=== PATIENT | male | born 1945 | race Caucasian/White ===

== ENCOUNTER 2016-09-19 05:38 | Day surgery (SDC) | payer MEDICARE, BC ==
[2016-09-18 11:27] LABS: HEMATOCRIT 44.2 % (42.0-54.0); HEMOGLOBIN 14.3 g/dL (13.5-17.5); MCH 31.4 pg (26.0-34.0); MCHC 32.4 g/dL (31.0-37.0); MCV 96.9 fL (80.0-100.0); MEAN PLATELET VOLUME 11.7 fL (7.4-10.4); RBC 4.56 10x6/uL (4.20-6.10); RDW 13.1 % (11.5-14.5); WBC 8.4 10x3/uL (4.8-10.8)
[2016-09-18 11:36] LABS: CALC OSMOLALITY 286 mosm/kg (275-300); CALCIUM 9.4 mg/dL (8.5-10.1); CARBON DIOXIDE 29.4 mmol/L (21.0-32.0); CHLORIDE - SERUM 107 mmol/L (98-107); GLUCOSE 117 mg/dL (74-106); POTASSIUM - SERUM 4.3 mmol/L (3.5-5.1); SODIUM 143 mmol/L (136-145); UREA NITROGEN 15 mg/dL (7-18); eGFR NON AFRICAN AMERICAN 78 mL/min (90-120)
[~2016-09-19] VITALS: Ht 170.2 cm; Wt 102.1 kg
[~2016-09-19 05:38] MED LIST: ALBUTEROL0.63 MG/3 INH; ATROVENT 0.02%2.5 ML UPD; BAYER CHEWABLE81 MG PO; BROVANA15 MCG/2 M INH; CELEXA20 MG PO; CENTRUM COMPLE1 EACH PO; COZAAR100 MG PO; CYCLOBENZAPRINE10 MG PO; FELODIPINE ER10 MG PO; FLOMAX0.4 MG PO; K-TAB10 MEQ PO; LASIX40 MG PO; LOVASTATIN20 MG PO; METAMUCIL PACKE1 PKT PO; METOPROLOL TAR100 M1 PO; MIRALAX527 GM PO; NIASPAN500 MG PO; NORCO 7.5/325 T1 TA1 PO; OMEPRAZOLE40 MG PO; VENTOLIN HFA18 GM INH; VITAMIN B-122500 MCG PO
[2016-09-19] MEDS ORDERED: NORVASC10 MG PO (08:19)
[2016-09-19] MEDS ORDERED: ZANTAC150 MG PO (08:20)
[2016-09-19 08:22] VITALS: BP 129/58; Ht 170.2 cm; Wt 102.1 kg
[2016-09-19] MEDS ORDERED: HYDROCODONE-APA1 TAB PO (10:29)
--- NOTE | 2016-09-19 14:52 | NUR ---
1200 IV DC WITH CATHER TIP INTACT
--- NOTE | 2016-09-30 10:28 | OP ---
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 PROCEDURE PERFORMED: Right shoulder arthroscopic subacromial decompression, distal clavicle excision and open rotator cuff repair. SURGEON: Diallo Burgess MD ANESTHESIA: General with an interscalene block for postop pain. CONDITION: He tolerated the procedure well, was transferred to the recovery room in stable condition at termination of the procedure. INDICATIONS: This is a 71-year-old gentleman with significant pain in his shoulder and weakness. He has had an MRI showing a tear. He also looked like he had a biceps rupture. He also had an AC joint DJD and impingement. We discussed options. He elected to proceed with operative repair. OPERATIVE REPORT: The patient was taken to the operating room, placed in the supine position. General anesthesia was obtained. He did have an interscalene block placed in the preop holding area. After the initial prep and drape, he had his right shoulder confirmed again to be the correct shoulder. Portal sites were marked and injected with 0.25% Marcaine with epinephrine. I established a posterior portal through which I put the scope and the inflow. Under direct visualization, I established an anterior portal. In scoping the glenohumeral joint, there was no significant biceps left, ____ the tendon was ruptured off of the labrum. There was a fairly large anterior superior supraspinatus tear. I did do some minor debridement in the joint, following which, I placed the scope in the subacromial space, made a lateral portal and through the lateral portal, debrided soft tissue and bursa over to the AC joint. I then used the jose to take a very large anterior inferior subacromial spur as well as his distal clavicle which was very degenerative. This was visualized well through the scope. I then made a lateral incision, opened this up. He had a very large anterior superior tear. I placed 4 suture punch sutures into this, brought this over to 2 [place] 4.5 suture anchors. This did bring down the cuff well. I did not go looking for his biceps as it had been ruptured prior to being to the case. I irrigated copiously, then checked the apposition of the cuff until the bone looked very good. I irrigated further, following which, I closed with 2-0 Vicryl, then 3-0 Prolene. The portals were closed with 3-0 Prolene. He was placed in soft dressing slingshot brace, awakened and transferred to the recovery room in stable condition, having tolerated the procedure well. 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
== END 2016-09-19 12:15 | disposition home or self-care (01) ==
LOC: D.OPS 05:38 → D.PAN 09:30 → D.OPS 09:30
PROVIDERS: Anesthesiology
DX: M75.41 Impingement syndrome of right shoulder (principal); M19.011 Primary osteoarthritis, right shoulder; M75.21 Bicipital tendinitis, right shoulder; M75.111 Incomplete rotator cuff tear or rupture of right shoulder, not specified as traumatic

== ENCOUNTER → 2017-02-11 09:34 | Outpatient (CLI) | payer MEDICARE, BC ==
[2016-09-19 08:22] VITALS: BMI 35.3
[~2017-02-11 09:34] MED LIST changes: +HYDROCODONE-APA1 TAB PO; +NORVASC10 MG PO; +ZANTAC150 MG PO
== END | disposition home or self-care (01) ==
LOC: D.RT 09:34
DX: J44.9 Chronic obstructive pulmonary disease, unspecified (principal)

== ENCOUNTER → 2017-02-19 14:02 | Outpatient (CLI) | payer MEDICARE, BC ==
[2016-09-19 08:22] VITALS: BMI 35.3
== END | disposition home or self-care (01) ==
LOC: D.MRI 14:02
DX: M47.14 Other spondylosis with myelopathy, thoracic region (principal)

== ENCOUNTER 2017-03-03 18:31 | Inpatient (IN) | payer MEDICARE, BC ==
[~2017-03-03] VITALS: Ht 170.2 cm; Wt 1038.8 kg
--- NOTE | ~2017-03-03 | HEMODYNAMI ---
PATIENT:JANICE JIMENEZ JR MEDICAL RECORD: [id number] : 47 [id number] ADMISSION DATE: 03/03/17 Generatedon:03/05/201712:31 Patient name: JANICE JIMENEZ Patient #: [id number] SSN: : 1945 Date of study: 03/05/2017 Page: Of Hemodynamic Procedure Report Patient Data Patient Demographics Procedure consent was obtained First Name: JANICE Gender: Male Last Name: TONY Suffix: Jr Guillen Initial: PRIYANKA : 1945 Patient #: [id number] Age: 72 year(s) Race: Unknown Additional ID: [id number] Contact details Address: [address] [place] [address] State: [place] City: [place] Zip code: [address] Past Medical History Allergies Allergen Reaction Date Comments Reported Other allergy 03/04/2017 Bendadryl Other allergy 03/05/2017 Benadryl Admission Admission Data Admission Date: 03/03/2017 Admission Time: 22:41 Room #: D.2120 Lab Results Lab Result Date: 03/05/2017 Lab Result Time: 0:00 Biochemistry Name Units Result Min Max BUN mg/dl 13 --(--*-)-- 7 18 Creatinine mg/dl 1 --(--*-)-- 0.6 1.3 CBC Name Units Result Min Max Hemoglobin g/dl 15.7 --(--*-)-- 13.5 17.5 Procedure Procedure Types Cath Procedure PCI Procedure Coronary Stent Initial Miscellaneous Procedures Moderate Sedation up to 15 minutes Procedure Description Procedure Date Procedure Date: 03/05/2017 Procedure Start Time: 12:22 Procedure End Time: 12:28 Procedure Staff Name Function Ravindra Alvarado MD Performing Physician Blu Whalen RT Scrub Rosa Le RN Nurse Stephanie Moise RT Monitor Claudia Chaevz RT Monitor David Frausto RN Nurse Procedure Data Cath Procedure Fluoroscopy Diagnostic fluoroscopy Total fluoroscopy Time: 1.4 time: 1.4 min min Diagnostic fluoroscopy Total fluoroscopy dose: 356 dose: 356 mGy mGy Contrast Material Contrast Material Type Amount (ml) Isovue 300 38 Entry Location Entry Primary Successful Side Size Upsize Upsize Entry Closure Succes sful Closure Location (Fr) 1 (Fr) 2 (Fr) Remarks Device Remarks Femoral Right 6 Fr Exoseal artery Short Estimated blood loss: 5 ml Procedure Complications No complications Procedure Medications Medication Administration Route Dosage Oxygen NC 2 l/min Heparin Flush Bag added to field 2 bags (1000units/500ml NS) Lidocaine 2% added to field 20 Fentanyl I.V. 50 mcg Versed I.V. 1 mg Heparin Bolus I.V. 4000 units Hemodynamics Rest HGB: 15.7 (g/dl) Heart Rate: 65 (bpm) Snapshots Pre Cath Intra NCS Post Cath Vital Signs Time Heart Resp SPO2 NIBP (mmHg) Rhythm Pain Sedation Rate (ipm) (%) Status Level (bpm) 12:02:44 64 21 95 148/80(130) NSR 0 (11) 10(A) , No pain 12:07:00 64 18 97 148/84(126) NSR 0 (11) 10(A) , No pain 12:11:17 65 19 96 143/81(121) NSR 0 (11) 10(A) , No pain 12:15:30 65 16 96 133/78(112) NSR 0 (11) 10(A) , No pain 12:19:45 66 16 93 136/72(112) NSR 0 (11) 9(A) , No pain 12:24:00 66 17 93 129/70(105) NSR 0 (11) 9(A) , No pain 12:28:15 66 15 96 125/69(102) NSR 0 (11) 9(A) , No pain Medications Time Medication Route Dose Verified Delivered Reason Notes Effectiveness by by 12:00:49 Oxygen NC 2 Rosa Rosa used for l/min Le Le fitter/welder RN 12:00:57 Heparin Flush added 2 Rosa Rosa used for Bag to bags Le Le procedure (1000units/500ml field RN RN NS) 12:01:05 Lidocaine 2% added 20ml Rosa Rosa used for to vial Le Le procedure field RN RN 12:19:47 Fentanyl I.V. 50 Rosa Rosa for sedation mcg Le Le RN RN 12:20:00 Versed I.V. 1 mg Rosa Lee for sedation Rey Le RN RN 12:24:18 Heparin Bolus I.V. 4000 Rosa Lee for units Rey Le anticoagulation RN dusting and brushing machine operator Log Time Note 11:39:30 Informed consent obtained and on chart 11:39:45 Diagnostic Cath Status : Elective 11:40:32 Rosa Le RN sent for patient. Start room use. 11:40:33 Time tracking: Regular hours 11:40:37 Plan of Care:Hemodynamics will remain stable., Cardiac rhythm will remain stable., Comfort level will be maintained., Respiratory function will remain adequate., Patient/ family verbilizes understanding of procedure., Procedure tolerated without complication., Recovers from procedure without complications.. 11:43:07 Lab Result : Hemoglobin 15.7 g/dl 11:43:07 Lab Result : Creatinine 1 mg/dl 11:43:07 Lab Result : BUN 13 mg/dl 11:53:09 Patient received from Med II to [facility] 2 Alert and oriented. Tansferred to table in Supine position. 11:53:10 Warm blankets applied, and camden hugger turned on for patient comfort. 11:53:11 Correct patient and procedure confirmed by team. 11:53:12 ECG and BP/O2 sat monitors applied to patient. 12:00:49 Oxygen 2 l/min NC was administered by Rosa Le RN; used for procedure; 12:00:57 Heparin Flush Bag (1000units/500ml NS) 2 bags added to field was administered by Rosa Le RN; used for procedure; 12:01:05 Lidocaine 2% 20ml vial added to field was administered by Rosa Le RN; used for procedure; 12:01:37 Vital chart was started 12:01:38 Baseline sample Acquired. 12:01:41 Rhythm: sinus rhythm 12:01:43 Full Disclosure recording started 12:01:48 H&P Date Dictated: 03/05/2017 Within 30 days and on chart.. 12:01:49 Pre-procedure instructions explained to patient. 12:01:50 Pre-op teaching completed and patient verbalized understanding. 12:01:55 Family in waiting room. 12:01:57 Patient NPO since Midnight. 12:02:15 Patient allergic to Other allergyBenadryl 12:02:18 Is the patient allergic to Iodine/contrast media? No. 12:02:19 Was the patient premedicated? No 12:02:27 Is patient on blood thinner?Yes 12:02:31 ACC The patient was administered the following blood thiners within the last 24 hours: ACCPlavix 12:02:33 Patient diabetic? No. 12:02:36 Previous problem with sedation/anesthesia? No ? 12:02:37 Snore? Yes 12:02:38 Sleep apnea? Yes 12:02:41 Deviated septum? No 12:02:42 Opens mouth fully? Yes 12:02:43 Sticks out tongue? Yes 12:02:47 Airway obstruction? Yes copd 12:02:51 Dentures? Yes out 12:02:56 Pre procedure: right dorsailis pedis pulse 1+ Palpable, but thready & weak; easily obliterated 12:02:59 Pre procedure: left dorsailis pedis pulse 1+ Palpable, but thready & weak; easily obliterated 12:03:02 Patient pain scale 0/10 ?. 12:03:08 IV patent on arrival in left forearm with 0.9% NaCl at [facility]. 12:03:11 Lab results completed and on chart. 12:03:15 Right groin area was prepped with chlora-prep and draped in sterile fashion 12:03:16 Alarms reviewed by R. N. 12:03:16 Sharps counted by scrub and verified by R.N. 12:14:46 Zero performed for pressure channel P1 12:14:53 Zero performed for pressure channel P1 12:15:01 Zero performed for pressure channel P1 12:15:09 Zero performed for pressure channel P1 12:18:51 Physician arrived 12:18:52 --------ALL STOP TIME OUT------ 12:18:54 Final Timeout: patient, procedure, and site verified with staff and physician. All members of the team are in agreement. 12:19:01 Right groin site verified by team. 12:19:04 Physical assessment completed. ASA score P 2 - A patient with mild systemic disease as per Ravindra Alvarado MD. 12:19:08 Sedation plan: IV Moderate Sedation Versed, Fentanyl 12:19:47 Fentanyl 50 mcg I.V. was administered by Rosa Le RN; for sedation; 12:20:00 Versed 1 mg I.V. was administered by Rosa Le RN; for sedation; : Procedure started. 12::36 Use device set Femoral PCI 12::38 Acist Syringe opened to sterile field. 12::38 Acist Hand Control opened to sterile field. 12::38 Bag Decanter opened to sterile field. 12::39 Medline Cath Pack opened to sterile field. 12::39 Terumo 6Fr Reston Sheath opened to sterile field. 12::39 St Esau 260cm J .035 wire opened to sterile field. 12::40 Merit BasixCompak Inflation Kit opened to sterile field. 12::40 Acist Manifold opened to sterile field. 12::40 Tegaderm 4 x 4 opened to sterile field. 12:22:03 Cordis 6FR XBLAD 4.0 guide catheter opened to sterile field. 12:22:11 Miller Whisper J 300cm 0.014 guide wire opened to sterile field. 12:22:18 Local anesthetic to right femoral artery with Lidocaine 2% by Ravindra Alvarado MD.INITIAL ACCESS ONLY 12:22:27 A 6 Fr Short sheath was inserted into the Right Femoral artery 12::36 6 Fr xblad 4 guide catheter was inserted over the wire 12:23:26 whisper wire advanced. 12:24:18 Heparin Bolus 4000 units I.V. was administered by Rosa Le RN; for anticoagulation; 12:25:03 Wire advanced across lesion. ::47 Inflation Number: 1 A Vanlue OTW 3.0 x 15 stent was prepped and advanced across the Prox LAD. The stent was deployed at 15 [place] for 0:10 (min:sec). 12::40 Stent catheter was removed intact over wire. 12::40 Wire removed. 12::41 Guide catheter removed. 12::49 Sheath removed intact; hemostasis achieved with Exoseal to the Right Femoral artery. 12::18 Procedure ended.(Physican Out) 12::56 Fluoroscopy time 01.40 minutes. 12::59 Flurop Dose total: 356 12::59 Fluoroscopy dose: 356 mGy 12:28:04 Contrast amount:Isovue 300 38ml. 12:28:06 Sharps counted by scrub and verified by R.N. 12:28:07 Insertion/operative site no bleeding no hematoma. 12:28:10 Post-op/insertion site Right Femoral artery dressed using a 4 x 4 and Tegaderm. 12:28:11 Post Procedure Pulses reassessed and unchanged 12:28:13 Post procedure rhythm: unchanged. 12:28:16 Estimated blood loss: 5 ml 12:28:17 Post procedure instruction explained to patient.Patient verbalizes understanding. 12:28:17 Patient needs reinforcement of post procedure teaching. 12:28:23 Procedure type changed to Cath procedure, PCI procedure, Coronary Stent Initial, Miscellaneous Procedures, Moderate Sedation up to 15 minutes 12:28:24 Procedure and supply charges have been captured, reviewed, submitted and are correct. 12:28:27 Procedure Complication : No complications 12:28:29 Vital chart was stopped 12:28:30 See physician's report for complete and final results. 12:28:33 Report given to [facility]. 12:28:35 Patient transfered to [facility] with Stretcher. 12:28:41 Procedure ended. 12:28:41 Full Disclosure recording stopped 12:28:50 ACC-PCI Only Patient was given prescriptions, or instructed by Ravindra Alvarado MD to start/continue the following medications upon discharge: Plavix 12:28:52 End room use (Document Last) Intervention Summary Intervention Notes Time ActionType Lesion and Equipment Action# Pressure Duration Attributes Used 12:25:47 Place stent Prox LAD Alo OTW 1 15 00:10 3.0 x 15 stent Device Usage Item Name Manufacture Quantity Catalog Hospital Part Current Minimal Lot# / Number Charge Number Stock Stock Serial# Code Acist Acist 1 20392 241372 219654 742846 20 Syringe Medical Systems Inc Acist Hand Acist 1 74468 389818 311494 180554 5 Control Medical Systems Inc Bag Microtek 1 2002S 491293 85729 173434 5 DecFancred Medical Inc. Medline Cardinal 1 [id number] 660081 54901 929360 5 Omnilink Systems Terumo 6Fr Terumo 1 [id number] 481828 318997 633039 [address] Esau St Esau 1 731013 170291 621184 150122 30 260cm J .035 wire Merit Merit 1 [id number] 657337 368419 521946 15 BasixCompak Medical Inflation Kit Acist Acist 1 71756 400743 425202 614857 5 CSD [employer] Tegaderm 4 3M 1 1626W 519487 161605 105995 5 x 4 Cordis 6FR Cardinal 1 [id number] 662505 610087 047969 3 XBLAD 4.0 Health guide catheter Miller Miller 1 [id number] 473644 400365 164260 5 Whisper J Vascular 300cm 0.014 guide wire Vanlue OTW Medtronic 1 [id number] 773890 383311 012799 5 [id number] 3.0 x 15 stent Signature Audit [place] Stage Time Signature Unsigned Intra-Procedure 03/05/2017 Claudia Chavez 12:31:52 PM RT(R) Signatures Monitor : Stephanie Moise Signature : RT Date : Time : Monitor : Claudia Chavez RT Signature : Date : Time : [address] [address]
--- NOTE | ~2017-03-03 | HEMODYNAMI ---
PATIENT:JANICE JIMENEZ JR MEDICAL RECORD: [id number] : 47 LOCATION:[address] ADMISSION DATE: 03/03/17 Generatedon:03/04/201713:40 Patient name: JANICE JIMENEZ Patient #: [id number] SSN: : 1945 Date of study: 03/04/2017 Page: Of Hemodynamic Procedure Report Patient Data Patient Demographics Procedure consent was obtained First Name: JANICE Gender: Male Last Name: TONY Suffix: [facility] Initial: PRIYANKA : 1945 Patient #: [id number] Age: 72 year(s) Race: Unknown Additional ID: [id number] Contact details Address: [address] [place] [address] State: [place] City: [place] Zip code: [address] Past Medical History Allergies Allergen Reaction Date Comments Reported Other allergy 03/04/2017 Bendadryl Admission Admission Data Admission Date: 03/03/2017 Admission Time: 22:41 Room #: D.2120 Lab Results Lab Result Date: 03/04/2017 Lab Result Time: 0:00 Biochemistry Name Units Result Min Max BUN mg/dl 13 --(--*-)-- 7 18 Creatinine mg/dl 1 --(--*-)-- 0.6 1.3 CBC Name Units Result Min Max Hemoglobin g/dl 15.7 --(--*-)-- 13.5 17.5 Procedure Procedure Types Cath Procedure Diagnostic Procedure LHC LHC w/Coronaries PCI Procedure Coronary Stent Initial Miscellaneous Procedures Moderate Sedation up to 30 minutes Procedure Description Procedure Date Procedure Date: 03/04/2017 Procedure Start Time: 13:12 Procedure End Time: 13:38 Procedure Staff Name Function Ravindra Alvarado MD Performing Physician Levi Rowe RN Nurse Stephanie Moise RT Scrub Blu Whalen RT Monitor Procedure Data Cath Procedure Fluoroscopy Diagnostic fluoroscopy Total fluoroscopy Time: time: 10.8 min 10.8 min Diagnostic fluoroscopy Total fluoroscopy dose: dose: 2253 mGy 2253 mGy Contrast Material Contrast Material Type Amount (ml) Isovue 300 159 Entry Location Entry Primary Successful Side Size Upsize Upsize Entry Closure Succes sful Closure Location (Fr) 1 (Fr) 2 (Fr) Remarks Device Remarks Femoral Right 5 Fr 6 Fr Exoseal artery Short Estimated blood loss: 10 ml Diagnostic catheters Device Type Used For End Catheter Placement Cordis 5Fr Pigtail Procedure Catheter (MP) Cordis 5Fr JL 4.0 Procedure Catheter (MP) Cordis 5Fr 3DRC Catheter Procedure (MP) Procedure Complications No complications Procedure Medications Medication Administration Route Dosage Oxygen NC 2 l/min Lidocaine 2% added to field 20 Heparin Flush Bag added to field 2 bags (1000units/500ml NS) Versed I.V. 1 mg Fentanyl I.V. 50 mcg Heparin Bolus I.V. 5000 units Versed I.V. 1 mg Fentanyl I.V. 50 mcg Plavix P.O. 75 mg Hemodynamics Rest HGB: 15.7 (g/dl) Heart Rate: 71 (bpm) Snapshots Pre Cath Intra NCS Post Cath Vital Signs Time Heart Resp SPO2 NIBP (mmHg) Rhythm Pain Sedation Rate (ipm) (%) Status Level (bpm) 13:08:55 71 16 95 149/97(127) NSR 0 (11) 10(A) , No pain 13:13:15 71 15 93 127/83(119) NSR 0 (11) 10(A) , No pain 13:17:29 74 16 94 144/85(124) NSR 0 (11) 9(A) , No pain 13:21:47 75 14 94 126/84(109) NSR 0 (11) 9(A) , No pain 13:25:59 81 14 95 133/83(123) NSR 0 (11) 9(A) , No pain 13:30:13 79 15 94 151/90(127) NSR 0 (11) 9(A) , No pain 13:34:31 84 16 94 145/84(113) NSR 0 (11) 9(A) , No pain 13:38:44 77 16 93 144/84(115) NSR 0 (11) 10(A) , No pain Medications Time Medication Route Dose Verified Delivered Reason Notes Effectiveness by by 13:08:57 Oxygen NC 2 Ravindra Sims used for l/min Jenny Rowe RN procedure 13:09:13 Lidocaine 2% added 20ml Ravindra Ravindra used for to vial Jenny Alvarado MD procedure field 13:09:20 Heparin Flush added 2 Ravindra Buffie used for Bag to bags Jenny Rowe RN procedure (1000units/500ml field NS) 13:11:58 Versed I.V. 1 mg Ravindra Juanie for sedation Jenny Rowe RN 13:12:04 Fentanyl I.V. 50 Ravindra Martinezie for sedation mcg Jenyn Rowe RN 13:17:10 Heparin Bolus I.V. 5000 Ravindra Buffie for verifi ed units Jenny Rowe RN anticoagulation with dr alvarado 13:19:39 Versed I.V. 1 mg Ravindra Martinezie for sedation Jenny Rowe RN 13:19:43 Fentanyl I.V. 50 Ravindra Martinezie for sedation mcg Jenny Rowe RN 13:37:32 Plavix P.O. 75 mg Ravindra Sims for Jenny Rowe RN antiplatelet therapy Procedure Log Time Note 12:45:25 Lab Result : BUN 13 mg/dl 12:45:25 Lab Result : Hemoglobin 15.7 g/dl 12:45:25 Lab Result : Creatinine 1 mg/dl 12:46:09 Diagnostic Cath status Elective 12:46:10 Lvei Rowe RN sent for patient. Start room use. 12:46:12 Time tracking: Regular hours 12:46:17 Plan of Care:Hemodynamics will remain stable., Cardiac rhythm will remain stable., Comfort level will be maintained., Respiratory function will remain adequate., Patient/ family verbilizes understanding of procedure., Procedure tolerated without complication., Recovers from procedure without complications.. 12:53:15 Patient received from Pre/Post Procedure Room to CCL 2 Alert and oriented. Tansferred to table in Supine position. 12:53:16 Warm blankets applied, and camden hugger turned on for patient comfort. 12:53:17 Correct patient and procedure confirmed by team. 12:53:18 Signed procedure consent form obtained from patient. 12:53:19 ECG and BP/O2 sat monitors applied to patient. 12:53:33 H&P Date Dictated: 03/04/2017 Within 30 days and on chart.. 12:53:34 Pre-procedure instructions explained to patient. 12:53:34 Pre-op teaching completed and patient verbalized understanding. 12:53:35 Family in patients room. 12:53:36 Patient NPO since Midnight. 13:00:25 Full Disclosure recording started 13:07:47 Vital chart was started 13:08:57 Oxygen 2 l/min NC was administered by Levi Rowe RN; used for procedure; 13:09:13 Lidocaine 2% 20ml vial added to field was administered by Ravindra Alvarado MD; used for procedure; 13:09:20 Heparin Flush Bag (1000units/500ml NS) 2 bags added to field was administered by Levi Rowe RN; used for procedure; 13:09:36 Patient allergic to Other allergyBendadryl 13:09:39 Is the patient allergic to Iodine/contrast media? No. 13:09:41 Is patient on blood thinner?Yes 13:09:42 ACC The patient was administered the following blood thiners within the last 24 hours: ACCPlavix 13:09:45 Patient diabetic? No. 13:09:47 Snore? Yes 13:09:48 Sleep apnea? Yes 13:09:49 Deviated septum? No 13:09:49 Opens mouth fully? Yes 13:09:50 Sticks out tongue? Yes 13:09:54 Airway obstruction? Yes COPD 13:10:41 Pre procedure: right dorsailis pedis pulse 1+ Palpable, but thready & weak; easily obliterated 13:10:44 Patient pain scale 3/10 ?. 13:10:51 IV patent on arrival in left forearm with 0.9% NaCl at O. 13:10:53 Lab results completed and on chart. 13:10:55 Right groin area was prepped with chlora-prep and draped in sterile fashion 13:10:56 Alarms reviewed by R. N. 13:10:57 Sharps counted by scrub and verified by R.N. 13:11:04 Use device set Femoral Dx 13:11:04 Tegaderm 4 x 4 opened to sterile field. 13:11:05 Acist Hand Control opened to sterile field. 13:11:06 Acist Manifold opened to sterile field. 13:11:07 Acist Syringe opened to sterile field. 13:11:07 Bag Decanter opened to sterile field. 13:11:08 Medline Cath Pack opened to sterile field. 13:11:08 Terumo 5Fr Port Tobacco Sheath opened to sterile field. 13:11:09 St Esau 260cm J .035 wire opened to sterile field. 13:11:10 Diagnostic Infinity 5Fr Multipack catheter opened to sterile field. 13:11:15 Physician arrived 13:11:15 --------ALL STOP TIME OUT------ 13:11:15 Final Timeout: patient, procedure, and site verified with staff and physician. All members of the team are in agreement. 13:11:17 Right groin site verified by team. 13:11:20 Physical assessment completed. ASA score P 2 - A patient with mild systemic disease as per Ravindra Alvarado MD. 13:11:22 Sedation plan: IV Moderate Sedation Versed, Fentanyl 13:11:47 Baseline sample Acquired. 13:11:57 Rhythm: sinus rhythm 13:11:58 Versed 1 mg I.V. was administered by Levi Rowe RN; for sedation; 13:12:00 Procedure started. 13:12:01 Local anesthetic to right femoral artery with Lidocaine 2% by Ravindra Alvarado MD.INITIAL ACCESS ONLY 13:12:04 Fentanyl 50 mcg I.V. was administered by Levi Rowe RN; for sedation; 13:12:05 A 5 Fr sheath was inserted into the Right Femoral artery 13:12:24 Zero performed for pressure channel P1 13:12:49 Zero performed for pressure channel P1 13:12:58 Zero performed for pressure channel P1 13:13:04 Zero performed for pressure channel P1 13:13:14 A Cordis 5Fr Pigtail Catheter (MP) was advanced over the wire and used for Procedure. 13:13:17 LV gram done using ZENDEJAS 13:13:20 Injector settings: Ml/sec: 10, Volume: 20, 13:13:24 EF : 40 % 13:13:28 Catheter exchanged over wire. 13:13:32 A Cordis 5Fr JL 4.0 Catheter (MP) was advanced over the wire and used for Procedure. 13:14:57 LCA angiography performed. 13:14:59 Catheter exchanged over wire. 13:15:03 A Cordis 5Fr 3DRC Catheter (MP) was advanced over the wire and used for Procedure. 13:15:34 RCA angiography performed. 13:15:44 Terumo 6Fr Port Tobacco Sheath opened to sterile field. 13:15:45 Miller Whisper J 300cm 0.014 guide wire opened to sterile field. 13:15:45 Serjio StephenComkevk Inflation Kit opened to sterile field. 13:17:06 Catheter removed. 13:17:10 Heparin Bolus 5000 units I.V. was administered by Levi Rowe RN; for anticoagulation; verified with dr alvarado 13:17:17 Medtronic Launcher 6Fr AR 2.0 SH guide catheter opened to sterile field. 13:17:42 Sheath upsized to a 6 Fr Short. 13:17:48 6 Fr AR 2 SH guide catheter was inserted over the wire 13:17:51 WHISPER wire advanced. 13:19:39 Versed 1 mg I.V. was administered by Levi Rowe RN; for sedation; 13:19:43 Fentanyl 50 mcg I.V. was administered by Levi Rowe RN; for sedation; 13:22:31 Ringgold Sci Choice PT Extra Support J 300cm .014 gu opened to sterile field. 13:22:39 Wire removed. 13:22:47 CHOICE PT wire advanced. 13:24:31 Miller Fielder XT J 300cm 0.014 guide wire opened to sterile field. 13:25:49 Wire removed. unable to cross lesion. 13:25:56 Fielder XT wire advanced. 13:26:33 Wire advanced across lesion. 13:26:59 Inflation number: 1 A Ringgold Sci Bollinger 2.0 X 15 balloon was prepped and advanced across the Mid RCA, then inflated to 9 [place] for 0:10 (min:sec). 13:27:10 Inflation number: 2 The Ringgold Sci Bollinger 2.0 X 15 balloon was reinflated across the Mid RCA, to 13 [place] for 0:10 (min:sec). 13:27:27 Inflation number: 3 The Ringgold Sci Bollinger 2.0 X 15 balloon was reinflated across the Mid RCA, to 15 [place] for 0:10 (min:sec). 13:27:50 Wire removed. 13:28:03 choice pt wire advanced. 13:28:05 Wire advanced across lesion. 13:28:54 Balloon removed over the wire. 13:31:10 Inflation Number: 4 A Dawson OTW 2.25 x 12 stent was prepped and advanced across the Mid RCA. The stent was deployed at 9 [place] for 0:10 (min:sec). 13:31:41 Inflation number: 5 The stent balloon was then re-inflated across the Mid RCA to 13 [place] for 0:10 (min:sec). 13:33:11 Stent catheter was removed intact over wire. 13:33:12 Wire removed. 13:33:13 Guide catheter removed. 13:33:19 Cordis 6Fr Exoseal opened to sterile field. 13:33:27 Sheath removed intact; hemostasis achieved with Exoseal to the Right Femoral artery. 13:33:29 Procedure ended.(Physican Out) 13:35:11 Fluoroscopy time 10.80 minutes. 13:35:16 Fluoroscopy dose: 2253 mGy 13:35:16 Flurop Dose total: 2253 13:35:19 Contrast amount:Isovue 300 159ml. 13:35:21 Sharps counted by scrub and verified by R.N. 13:35:24 Insertion/operative site no bleeding no hematoma. 13:35:27 Post-op/insertion site Right Femoral artery dressed using a 4 x 4 and Tegaderm. 13:35:34 Post right femoral artery:stable, soft, clean and dry 13:35:36 Post Procedure Pulses reassessed and unchanged 13:35:38 Post-procedure physical assessment completed. ASA score P 2 - A patient with mild systemic disease as per Ravindra Alvarado MD. 13:35:41 Post procedure rhythm: unchanged. 13:35:43 Estimated blood loss: 10 ml 13:35:45 Post procedure instruction explained to patient.Patient verbalizes understanding. 13:35:45 Patient needs reinforcement of post procedure teaching. 13:37:32 Plavix 75 mg P.O. was administered by Levi Rowe RN; for antiplatelet therapy; 13:38:09 Procedure and supply charges have been captured, reviewed, submitted and are correct. 13:38:13 Procedure Complication : No complications 13:38:14 Vital chart was stopped 13:38:15 See physician's report for complete and final results. 13:38:16 Report given to Pre/Post Procedure Room. 13:38:18 Patient transfered to Pre/Post Procedure Room with Stretcher. 13:38:19 Procedure ended. 13:38:19 Full Disclosure recording stopped 13:38:25 End room use (Document Last) Intervention Summary Intervention Notes Time ActionType Lesion and Equipment Action# Pressure Duration Attributes Used 13:26:59 Inflate Mid RCA Ringgold 1 9 00:10 balloon Sci Bollinger 2.0 X 15 balloon 13:27:10 Reinflate Mid RCA Ringgold 2 13 00:10 balloon Sci Bollinger 2.0 X 15 balloon 13:27:27 Reinflate Mid RCA Ringgold 3 15 00:10 balloon Sci Bollinger 2.0 X 15 balloon 13:31:10 Place stent Mid RCA Dawson OTW 4 9 00:10 2.25 x 12 stent 13:31:41 Reinflate Mid RCA Dawson OTW 5 13 00:10 stent 2.25 x 12 balloon stent Device Usage Item Name Manufacture Quantity Catalog Number Hospital Part Current Mini mal Lot# / Charge Number Stock Stock Serial# Code Tegaderm 4 3M 1 [id number] 006273 5 x 4 Acist Hand Acist 1 78503 103696 016653 700585 5 Viblio Medical Systems OpenRoute Acist Acist 1 56191 854733 664149 940092 5 UpRace Medical Systems OpenRoute Acist Acist 1 63149 078255 222626 547472 20 Syringe Medical Systems OpenRoute Bag Microtek 1 2002S 767232 65371 878354 5 Salesforce [employer] Inc. Medline Cardinal 1 [id number] 490327 48522 977864 5 Cath Pack Health Terumo 5Fr Terumo 1 JDU090 133172 740973 293723 [address] St Esau 1 872258 470788 638609 858302 30 260cm J .035 wire Diagnostic Cardinal 1 [id number] 622870 99521 369883 30 Infinity Health 5Fr Multipack catheter Cordis 5Fr Cardinal 1 [id number] 5 Pigtail Health Catheter (MP) Cordis 5Fr Cardinal 1 643606 5 JL 4.0 Health Catheter (MP) Cordis 5Fr Cardinal 1 351603 5 3DRC Health Catheter (MP) Terumo 6Fr Terumo 1 VEC246 829661 729509 238142 40 Port Tobacco Sheath Music United 1 [id number] 760433 041317 111447 5 Whisper J Vascular 300cm 0.014 guide wire Merit Merit 1 TN4300 968281 336208 809053 15 [employer] Medical Inflation Kit MedOZ SafeRoomstronic 1 [id number] 636717 17276 240112 1 Launcher 6Fr AR 2.0 SH guide catheter Ringgold Sci Ringgold 1 [id number] 332382 510119 135368 5 Choice PT Scientific Extra Support J 300cm .014 gu Miller Miller 1 [id number] 212270 268314 818248 5 Fielder XT Vascular J 300cm 0.014 guide wire Ringgold Sci Ringgold 1 [id number] 061508 038001 246645 1 [id number] [email or web address] 2.0 X 15 balloon Dawson OTW Medtronic 1 [id number] 335066 86490 099923 5 [id number] 2.25 x 12 stent Cordis 6Fr Cardinal 1 EX600 639986 809981 390762 10 [facility] Virgin Play Signature Audit Wiggins Stage Time Signature Unsigned Intra-Procedure 03/04/2017 Blu Whalen 1:40:38 PM RT(R) Signatures Monitor : Blu Whalen RT Signature : Date : Time : [place] [id number] [place] [address]
[2017-03-03 19:41] LABS: BASOPHILS 0.3 % (0-2); EOSINOPHILS 3.8 % (0-7); HEMATOCRIT 46.1 % (42.0-54.0); HEMOGLOBIN 15.7 g/dL (13.5-17.5); IMMATURE GRANULOCYTES 0.3 % (0-5); LYMPHOCYTES 17.7 % (15-50); MCH 32.8 pg (26.0-34.0); MCHC 34.1 g/dL (31.0-37.0); MCV 96.4 fL (80.0-100.0); MEAN PLATELET VOLUME 11.6 fL (7.4-10.4); MONOCYTES 7.7 % (2-11); NEUTROPHILS 70.2 % (40-80); PLATELET COUNT 155 10x3/uL (130-400); RBC 4.78 10x6/uL (4.20-6.10); RDW 12.2 % (11.5-14.5); WBC 10.6 10x3/uL (4.8-10.8)
[2017-03-03 20:13] LABS: ALKALINE PHOSPHATASE 77 U/L (46-116); ALT (SGPT) 25 U/L (10-68); BILIRUBIN - TOTAL 0.39 mg/dL (0.2-1.3); CALC OSMOLALITY 279 mosm/kg (275-300); CALCIUM 9.3 mg/dL (8.5-10.1); CARBON DIOXIDE 28.1 mmol/L (21.0-32.0); CHLORIDE - SERUM 102 mmol/L (98-107); CHOL - HDL RATIO 4.3 ratio (2.3-4.9); CHOLESTEROL, TOTAL 166 mg/dL (0-200); CREATINE KINASE 129 UL (21-232); GLUCOSE 121 mg/dL (74-106); HDL CHOLESTEROL 39 mg/dL (32-96); LDL CHOLESTEROL 81 mg/dL (0-100); LDL-HDL RATIO 2.1 ratio (1.5-3.5); POTASSIUM - SERUM 3.5 mmol/L (3.5-5.1); PRO BNP 502 pg/mL (0-125); SODIUM 140 mmol/L (136-145); TRIGLYCERIDE 234 mg/dL (30-200); UREA NITROGEN 13 mg/dL (7-18); eGFR NON AFRICAN AMERICAN 78 mL/min (90-120)
[2017-03-03 20:18] LABS: PROTEIN - SERUM 7.5 g/dL (6.4-8.2)
[2017-03-03 20:20] LABS: TROPONIN-I 0.328 ng/mL (0.000-0.060)
[2017-03-04] MEDS ORDERED: HYDROCODON-ACE1 EAC7 PO (01:01)
[2017-03-04] MEDS ORDERED: NORVASC5 MG PO (01:03)
[2017-03-04] MEDS ORDERED: MUCINEX DM ER1 EAC1 PO (01:06)
[2017-03-04] MEDS ORDERED: SINGULAIR10 MG PO (01:09)
[2017-03-04] MEDS ORDERED: FLUTICASONE PRO16 GM NASAL (01:09)
[2017-03-04] MEDS ORDERED: BROVANA15 MCG/2 M INH (01:10)
[2017-03-04 01:28] VITALS: BP 180/90; BMI 50.2
[2017-03-04 04:00] VITALS: BP 197/95
--- NOTE | 2017-03-04 07:20 | NUR ---
SPOKE WITH TANNER IN NURSE CASE MANAGEMENT REPORTED PT'S TROPONIN SHE STATED DR YANG HAD BEEN PAGED AND SHE WOULD MAKE HIM AWARE OF TROPONIN
--- NOTE | 2017-03-04 07:30 | NUR ---
ASSESSMENT DONE. DENIES NEEDS.
[2017-03-04 12:00] VITALS: BP 161/82
[2017-03-04 12:08] VITALS: Ht 170.2 cm; Wt 1038.8 kg
--- NOTE | 2017-03-04 13:03 | NUR ---
TO AREA PLANT MANAGER PER BED
--- NOTE | 2017-03-04 14:05 | NUR ---
RETURN FROM DRIER UNLOADER PER BED. RT DARLYN BOBBY C/Maria Teresa. SERG PIRES.
[2017-03-04 16:00] VITALS: BP 180/89
--- NOTE | 2017-03-04 16:12 | NUR ---
ALERT AND ORIENTED X4. RESTING IN BED. FAMILY AT BEDSIDE. FREE FROM BLEEDING. SINUS RHTHYM 71bpm ON TELEMETRY. REFUSE SCDs. CHRISTO ACOSTA RESUME PLAN OF CARE.
--- NOTE | 2017-03-04 17:50 | NUR ---
WITHOUT CHANGES OR DISTRESS NOTED AT THIS TIME. DENIES NEEDS. AT SIDE.
[2017-03-04 20:00] VITALS: BP 143/76
--- NOTE | 2017-03-04 20:47 | NUR ---
RESUMED CARE OF PT, LYING IN BED RESPIRATIONS EVEN AND UNLABORED ON 2LPM VIA NC. AT BEDSIDE, REPORTED NAUSEA AND DIAPHESIS EARLIER. HAS SINCE RESOLVED, VSS. NEURO ASSESSMENT CHECKED PER WIFES REQUEST, SOME LEFT SIDED WEAKNESS NOTED TO LOWER EXTREMITY, NO OTHER DEFECITS AT THIS TIME WILL CONTINUE TO MONITOR. 67 SR ON TELEMETRY. CALL LIGHT IN REACH. SEE NURSE ASSESSMENT.
--- NOTE | 2017-03-04 23:06 | NUR ---
RESPONDED TO EMERGENCY LIGHT, FOUND PT IN FLOOR OF BATHROOM. ASSISSTED TO STANDING POSITION AND ON TO COMMODE. NO COMPLAINTS OF PAIN TO ANY AREAS, SOME REDNESS NOTED TO LEFT FLANK AREA. EDITH NOTIFIED, WILL CONTINUE TO MONITOR. CALL LIGHT IN REACH. BED ALARM TURNED ON.
[2017-03-05] VITALS: BP 130/80
--- NOTE | 2017-03-05 00:19 | NUR ---
CLINICAL PSYCHOLOGY PROFESSOR AT BEDSIDE TO OBTAIN VITALS, CALL LIGHT IN REACH. WILL CONTINUE TO MONITOR.
[2017-03-05 04:00] VITALS: BP 129/58
--- NOTE | 2017-03-05 04:54 | NUR ---
NO CHANGES FROM PREVIOUS ASSESSMENT, CALL LIGHT IN REACH. BED ALARM ON
--- NOTE | 2017-03-05 07:15 | NUR ---
RESTING QUIETLY RESP UNLABORED NAD NOTED
--- NOTE | 2017-03-05 07:17 | NUR ---
DR. YANG PAGED TO NOTIFY OF FALL LAST NIGHT, AWAITING CALL BACK.
--- NOTE | 2017-03-05 07:30 | NUR ---
ASSESSMENT COMPLETED. SMALL BRUISE TO FACE AND ACROSS HIS EAR TO THE LEFT SIDE. 02 AT 2 L/M PER NC. TELEMERTY SHOWS SR. IV TO RIGHT AC SL, PATENT. RIGHT GROIN SOFT WITH DRSG DRY AND INTACT. NPO AFTER BREAKFAST FOR CATH. CALL LIGHT IN REACH WITH SR UP
[2017-03-05 07:47] VITALS: BP 135/73
[2017-03-05 11:42] VITALS: BP 143/75
--- NOTE | 2017-03-05 11:50 | NUR ---
TO PHARMACIST CRITICAL CARE PER BED
--- NOTE | 2017-03-05 17:16 | NUR ---
Patient Name: JANICE JIMENEZ Admission Status: ER Accout number: [id number] Admission Date: 03-05-2017 : 1945 Admission Diagnosis: Attending: RAFAEL BRANDT Current LOS: 1 Anticipated DC Date: 03-06-2017 Planned Disposition: Inpatient Rehab Primary Insurance: MEDICARE A & B PLANNED EXTERNAL PROVIDER: [facility] INPATIENT REHAB Discharge Planning Comments: * Is the patient Alert and Oriented? No 0 * How many steps to enter\exit or inside your home? 5 0 * PCP DR. CASTELLON 0 * Pharmacy [facility] [address] * Preadmission Environment Home with Family 0 * ADLs Independent 0 * Equipment Cane CPAP Oxygen Rolling Walker 0 * Other Equipment NIGHT TIME OXYGEN [facility] - MEDICAL EQUIPMENT PROVIDER PREFERENCE 0 * List name and contact numbers for known caregivers / representatives who currently or will assist patient after discharge: EDITH JIMENEZ, SPOUSE, 0 * Community resources currently utilized None 0 * Please name any agencies selected above. NONE 0 * Additional services required to return to the preadmission environment? Yes * Can the patient safely return to the preadmission environment? Yes 0 * Has this patient been hospitalized within the prior 30 days at any hospital? No [address] YANG WHO PROVIDED ORDERS FOR PHYSICAL THERAPY EVALUATION AND INPATIENT REHAB PRESCREENING DUE TO PT'S SPOUSE REPORTING PT BEING WEAK AND NEEDING REHAB. ADVISES THAT IF NOT ACCEPTED, PT WILL DISCHARGE HOME. CM MET WITH PT AND SPOUSE IN ROOM TO DISCUSS DISCHARGE PLANNING AND NEEDS. PT POST PROCEDURE, SLEEPING THROUGH MOST OF ASSESSMENT. SPOUSE REPORTS PT LIVING AT HOME INDEPENDENTLY WITH SPOUSE BUT HAS BEEN INCREASINGLY WEAK OVER THE PAST FEW WEEKS AND HAS MULTIPLE FALLS AT HOME. PT HAS CANE, ROLLING WALKER (HE DOES NOT USE IT), CPCP AND HOME OXYGEN FROM [facility]. PT HAS OUTSIDE SERVICES ASSISTING IN THE HOME. CM DISCUSSED OBSERVATION STATUS, LACK OF THREE INPATIENT NIGHTS IN THE PAST THIRTY DAYS IN THE HOSPITAL, REQUIREMENT FOR INTERMEDIATE REHAB TO BE PAID AND POSSIBILITY THAT INPATIENT REHAB ADMISSION CRITERIA MAY NOT BE MET. CM ALSO DISCUSSED OUTPATIENT THERAPY SERVICES AND HOME HEALTH REHAB SERVICES. PT'S SPOUSE WANTS PT IN THE [facility] INPATIENT REHAB, SHE USED TO WORK AT [employer] AND KNOWS THE REHAB STAFF AND HERSELF SPENT REHAB TIME IN THE INPATIENT REHAB. GOAL IS FOR PT TO RETURN HOME WITH SPOUSE INDEPENDENTLY FOLLOWING INPATIENT REHAB. CM WAITING COMPLETION OF PHYSICAL THERAPY EVALUATION WELL INPATIENT REHAB PRESCREENING. Trades Helper: Amador Walker
--- NOTE | 2017-03-05 18:12 | NUR ---
LYING QUIETLY. LEFT GROIN SOFT WITH DRSG DRY AND INTACT. PPP. DENIES ANY NEEDS. FAMILY AT BEDSIDE
[2017-03-05 20:53] VITALS: BP 152/79
[2017-03-06 04:00] VITALS: BP 146/74
--- NOTE | 2017-03-06 07:38 | NUR ---
ASSESSMENT DONE. DENIES NEEDS.
[2017-03-06 08:00] VITALS: BP 137/82
--- NOTE | 2017-03-06 10:14 | NUR ---
Rehab Prescreening Consult recieved and the chart has been reviewed. This patient does not meet IRF criteria based on the lack of medical necessity. At this time he does not have the need to be monitored 24/7 by an RN or the need to be seen by a physician 3 times a week. Discussed with the CM Daniel Walker. Marjorie Suarez RN Clinical Liaison, Rehab
--- NOTE | 2017-03-06 11:12 | DS ---
PATIENT:JANICE JIMENEZ JR :[birth year] MEDICAL RECORD: [id number] DISCHARGE SUMMARY ADMISSION DATE: 03/05/17 DISCHARGE DATE: DATE OF SERVICE: 03/05/2017 DIAGNOSES: 1. Angina. 2. Coronary artery disease. 3. Percutaneous transluminal coronary angioplasty stent left anterior descending and right coronary artery this admission. HOSPITAL COURSE: Mr. Jimenez presents with unstable anginal symptomatology, found to have 2-vessel coronary artery disease of the LAD and RCA, underwent successful PTCA stent of above territories, had an uneventful postop course. He was discharged home with the addition of aspirin and Plavix to his medical regimen. Follow up with [facility] in 1 month. TRANSINT:[id number] Voice Confirmation ID: [id number] DOCUMENT ID: [id number] ANGIE YANG MD at 1112 CC: [id number] DICTATION DATE: 03/05/17 1229 MARRIAGE AND FAMILY TEACHER: 03/06/[address] [facility] [address] [place] [address]
--- NOTE | 2017-03-06 11:12 | OP ---
PATIENT NAME: JANICE JIMENEZ JR MEDICAL RECORD: [id number] :[birth year] LOCATION:D.M2 D.2120 ADMISSION DATE:03/05/17 SURGEON: ANGIE YANG MD DATE OF OPERATION: 03/04/2017 PROCEDURES: 1. PTCA stent RCA. 2. Left heart catheterization. 3. Selective coronary angiography. 4. Left ventriculogram. INDICATION: Unstable angina. PROCEDURE IN DETAIL: After informed consent was obtained and after detailed explanation of risks, benefits as well as alternative therapies, the patient elected to proceed with angiogram and angioplasty. The right femoral area was prepped and draped in normal sterile fashion. The right femoral artery was cannulated via modified Seldinger technique with placement of 6-Prydeinig sheath. All catheters exchanged through this sheath. FINDINGS: Left ventriculogram was performed in standard 30-degree ZENDEJAS view, reveals decreased cardiac wall motion, ejection fraction 40%. SELECTIVE CORONARY ANGIOGRAPHY: 1. Left main is with no significant angiographic disease. 2. Left anterior descending has at least 80% irregularities throughout the proximal aspect. After this, the LAD diagonal is totally occluded, but the LAD itself is widely patent. 3. Left circumflex has moderate diffuse disease throughout the entire vessel. 4. Right coronary has a 99% stenosis in the mid vessel. PTCA STENT OF THE RIGHT CORONARY: The stent used was a 2.25 x 12 mm Medtronic Alo. Result was 0% residual stenosis. OVERALL IMPRESSION: Successful percutaneous transluminal coronary angioplasty stent of the right coronary artery going from 99% initial stenosis to 0% residual stenosis. PLAN: For PTCA stent of the LAD in the near future. TRANSINT:[id number] Voice Confirmation ID: [id number] DOCUMENT ID: [id number] ANGIE YANG MD at 1112 CC: [id number] DICTATION DATE: 03/04/17 1635 DEAN FOR STUDENT AFFAIRS: 03/04/17 2217 [place] [address]
--- NOTE | 2017-03-06 11:12 | OP ---
PATIENT NAME: JANICE JIMENEZ JR MEDICAL RECORD: [id number] :[birth year] LOCATION:D.M2 D.2120 ADMISSION DATE:03/05/17 SURGEON: ANGIE YANG MD DATE OF OPERATION: 03/05/2017 PROCEDURES: 1. PTCA stent LAD. 2. Selective coronary angiography. INDICATION: Angina and coronary artery disease. PROCEDURE IN DETAIL: After informed consent was obtained and after detailed explanation of risks, benefits as well as alternative therapies, the patient elected to proceed with angiogram and angioplasty. The right femoral area was prepped and draped in normal sterile fashion. The right femoral artery was cannulated via modified Seldinger technique with placement of 6-Lao sheath. All catheters exchanged through this sheath. FINDINGS: The left anterior descending has 80% stenosis proximally. This was addressed with a 3.0 x 15 mm [place] stent. Result was 0% residual stenosis. OVERALL IMPRESSION: Successful percutaneous transluminal coronary angioplasty stent of the left anterior descending going from 80% initial stenosis to 0% residual stenosis. TRANSINT:[id number] Voice Confirmation ID: [id number] DOCUMENT ID: [id number] ANGIE YANG MD at 1112 CC: [id number] DICTATION DATE: 03/05/17 1230 TECHNOLOGY COORDINATOR: 03/05/17 1858 ADM IN [place] [id number] [place] [address]
--- NOTE | 2017-03-06 11:12 | HP ---
PATIENT: JANICE JIMENEZ JR MEDICAL RECORD: [id number] ACCOUNT: [id number] LOCATION:[address] : [birth year] ADMISSION DATE: 03/05/17 HISTORY AND PHYSICAL EXAMINATION DIAGNOSES: 1. Non-Q-wave myocardial infarction. 2. Coronary artery disease. 3. Previous percutaneous transluminal coronary angioplasty stent. 4. Hypertension. 5. Hyperlipidemia. 6. Smoking history. 7. Chronic obstructive pulmonary disease. HISTORY OF PRESENT ILLNESS: Mr. Jimenez presents with chest pain. He has had chest pain for the past 2 days. He attributed this to indigestion. It got worse yesterday. His troponin is 11, positive for a non-Q-wave myocardial infarction. He is pain free at this time. He does have a history of coronary artery disease. Last cardiac intervention in 2011. PHYSICAL EXAMINATION: GENERAL APPEARANCE: Well-nourished, well-developed, appears stated age. Level of distress, comfortable. PSYCHIATRIC: Mental status, alert, normal affect. Orientation, oriented to time, place and person. EYES: Lids and conjunctiva, noninjected. No discharge, no pallor. ENT: Lips, teeth, gums, normal dentition. Oropharynx, no cyanosis, no pallor. NECK: Carotid arteries, bilateral normal upstroke, no bruits, no thrills. JUGULAR VEINS: No jugular venous pressure or distention. CERVICAL LYMPH NODES: Nontender, nonenlarged. THYROID: Not enlarged. Nontender. No nodules. LUNGS: Respiratory effort, unlabored. CHEST: Normal curvature. No thoracic deformity. No chest wall tenderness. Percussion, resonant. Auscultation, clear. No wheezes, no rales, no rhonchi. CARDIOVASCULAR: Precordial exam, nondisplaced. No heaves or pericardial thrills. Rate and rhythm, regular. Heart sounds, normal S1, normal S2. No S3, no gallop, no rub. Systolic murmur, not heard. Diastolic murmur, not heard. EXTREMITIES: No cyanosis, no edema. Peripheral pulses, full and equal in all extremities, except as noted. No bruits appreciated. ABDOMEN: Soft, nondistended. Normal aorta. No bruit. Nontender. No masses. Liver, nontender, no hepatomegaly. Spleen, nontender, no splenomegaly. MUSCULOSKELETAL: No joint tenderness. No joint swelling. No erythema. NEUROLOGICAL: Normal gait, normal strength, normal tone. SKIN: Warm and dry. REVIEW OF SYSTEMS: The patient reports easy bruising but reports no swollen glands. The patient reports no fever, no night sweats, no significant weight gain, no significant weight loss. No significant exercise tolerance. The patient reports no dry eyes, no irritation, no vision change. Patient reports no difficulty hearing and no ear pain. Patient reports no frequent nose bleeds or nose and sinus problems. Patient reports on arm pain on exertion. No shortness of breath while lying down. No history of heart murmur. Patient reports no cough, no wheezing or coughing up blood. Patient reports no abdominal pain, no vomiting. Normal appetite. No diarrhea and not vomiting blood. No nausea and no constipation. Patient reports no incontinence. No HISTORY AND PHYSICAL [id number] JANICE JIMENEZ JR difficulty urinating. No hematuria. No increased frequency. Patient reports no muscle aches. No weakness, no arthralgias, no back pain. No swelling of the extremities. Patient reports no abnormal mole, no jaundice, no rashes. Reports no loss of consciousness. No weakness and no numbness. No seizures, dizziness, or headaches. The patient reports no depression, no sleep disturbance, feeling safe in a relationship and no alcohol abuse. Patient reports on fatigue. Reports no runny nose or sinus pressure. No itching, no hives, and no frequent sneezing. OVERALL IMPRESSION: Chest pain, non-Q-wave myocardial infarction. No doubt he has recurrent hemodynamically significant coronary artery disease. We will proceed with coronary angiography. Further care depends upon findings of the angiography. TRANSINT:[id number] Voice Confirmation ID: [id number] DOCUMENT ID: [id number] ANGIE YANG MD at 1112 CC: [id number] DICTATION DATE: 03/04/17807 BIOMETRICS HEAD: 03/04/17 0826 [facility] IN [place] [id number] [place] [id number]
[2017-03-06 12:00] VITALS: BP 139/67
[2017-03-06] MEDS ORDERED: PLAVIX75 MG PO (12:11)
--- NOTE | 2017-03-06 12:46 | NUR ---
RD f/u note- chart reviewed and pt visit. Pt reports good appetite. No n/v/c/d/chewing/swallowing problems. Pt appears and states to feel better Diet: AHA PO: 50-75% MEDS: KCL, Lasix, SKIN: brasion to cath site Thom 19 BM: 03/03 noted WT: 228.5 (bedscale) Pt with fair intake to good intake, appears to be doing better today with good appeite. No changes at this time. Plan: RD to continue to follow
--- NOTE | 2017-03-06 15:52 | NUR ---
Patient Name: JANICE JIMENEZ Encounter No: [id number] : 1945 Primary Insurance: MEDICARE A & B Anticipated DC Date: 03-06-2017 Planned Disposition: HOME HEALTH External Planned Provider: [facility] DCP follow-up note: CM SPOKE TO JOHNIE OF [facility] INPATIENT [facility], PT DOES NOT HAVE MEDICAL NEED OF INPATIENT REHAB; CM MET WITH PT AND SPOUSE IN ROOM. PT AND SPOUSE AGREE THAT PT WILL GO HOME WITH FAMILY ASSISTANCE. PT'S SPOUSE REPORTS HAVING HER SON AND OTHER FAMILY MEMBERS TO ASSIST WITH PT'S CARE NEEDED. PT / SPOUSE REQUESTED HOME HEALTH SERVICES. CHOICE PRESENTED, PT'S SPOUSE SELECTED [facility], CHOICE SIGNED. PT'S SPOUSE CONCERNED THAT THERAPY DID NOT GET PT WALKING TODAY, CM CALLED THERAPY DEPARTMENT, REQEUSTED THERAPIST TO WALK PT AND ADVISED PT IS GOING HOME WITH FAMILY. HOME HEALTH ORDER OBTAINED. CM CALLED [facility], , SPOKE TO CHEN AND PROVIDED REFERRAL INFORMATION AND REQUESTED HOME HEALTH CONTACT DR. CASTELLON, PRIMARY CARE, FOR HOME HEALTH ORDERS. CM FAXED REFERRAL TO [facility] AT [phone]. NUCLEAR EQUIPMENT DESIGN ENGINEER NURSE NOTIFIED. PT AND SPOUSE NOTIFIED, SPOUSE TO TRANSPORT HOME, PT'S SON WILL MEET THEM THERE TO ASSIST WITH GETTING PT IN THE HOME SAFELY. Amador Walker, CASE MANAGEMENT
--- NOTE | 2017-03-06 15:59 | NUR ---
DC AND RX GIVEN TO PT AND
--- NOTE | 2017-03-06 16:24 | NUR ---
DC HOME PER PERSONAL CAR
[2017-03-09] MEDS ORDERED: NITROSTAT0.4 MG SL (11:35)
[2017-03-09] MEDS ORDERED: HYDRALAZINE HCL25 MG PO (11:38)
== END 2017-03-06 16:24 | disposition home health service (06) | DRG 247 ==
LOC: D.ER 18:31 → D.M2 22:41 → OBSVTIME 22:41 → D.M2 22:41
PROVIDERS: Emergency Medicine; Internal Medicine Interventional Cardiology; ADMIT Internal Medicine Interventional Cardiology
PROC: 4A023N7 Measurement of Cardiac Sampling and Pressure, Left Heart, Percutaneous Approach (ICD-10-PCS; 2017-03-04)
PROC: B2111ZZ Fluoroscopy of Multiple Coronary Arteries using Low Osmolar Contrast (ICD-10-PCS; 2017-03-04)
PROC: B2151ZZ Fluoroscopy of Left Heart using Low Osmolar Contrast (ICD-10-PCS; 2017-03-04)
PROC: 027034Z Dilation of Coronary Artery, One Artery with Drug-eluting Intraluminal Device, Percutaneous Approach (ICD-10-PCS; principal; 2017-03-04 08:30)
PROC: 027034Z Dilation of Coronary Artery, One Artery with Drug-eluting Intraluminal Device, Percutaneous Approach (ICD-10-PCS; 2017-03-05)
DX: I21.4 Non-ST elevation (NSTEMI) myocardial infarction (principal); I25.110 Atherosclerotic heart disease of native coronary artery with unstable angina pectoris; I10 Essential (primary) hypertension; E78.5 Hyperlipidemia, unspecified; J44.9 Chronic obstructive pulmonary disease, unspecified; Z95.5 Presence of coronary angioplasty implant and graft; Z87.891 Personal history of nicotine dependence

== ENCOUNTER 2017-03-07 19:30 | Inpatient (IN) | payer MEDICARE, BC | END 2017-03-09 13:00 | disposition home health service (06) | DRG 303 | LOC: D.ER 19:30 → D.M2 21:17 | PROVIDERS: ADMIT Family Medicine Adult Medicine | DX: I25.110 Atherosclerotic heart disease of native coronary artery with unstable angina pectoris (principal); I10 Essential (primary) hypertension; E78.5 Hyperlipidemia, unspecified; J44.9 Chronic obstructive pulmonary disease, unspecified; G47.33 Obstructive sleep apnea (adult) (pediatric); R21 Rash and other nonspecific skin eruption; I25.2 Old myocardial infarction; Z95.5 Presence of coronary angioplasty implant and graft; Z87.891 Personal history of nicotine dependence ==

== ENCOUNTER → 2018-02-16 09:46 | Outpatient (CLI) | payer MEDICARE, BC ==
[2017-03-08 02:57] VITALS: BMI 34.2
[~2018-02-16 09:46] MED LIST changes: +FLUTICASONE PRO16 GM NASAL; +HYDRALAZINE HCL25 MG PO; +HYDROCODON-ACE1 EAC7 PO; +MUCINEX DM ER1 EAC1 PO; +NITROSTAT0.4 MG SL; +NORVASC5 MG PO; +PLAVIX75 MG PO; +SINGULAIR10 MG PO
== END | disposition home or self-care (01) ==
LOC: D.RT 09:46
DX: J44.9 Chronic obstructive pulmonary disease, unspecified (principal)

== ENCOUNTER 2018-07-13 14:57 | Inpatient (IN) | payer MEDICARE, BC ==
--- NOTE | 2018-07-11 22:00 | NUR ---
RECIEVED FROM ER VIA WHEELCHAIR, PT A&O X4 AT BEDSIDE V/S WNL 02 ON @3L IV RT FA NS @125 CL IN REACH WILL CONT TO MONITOR
[~2018-07-13] VITALS: Ht 170.2 cm; Wt 107.3 kg
--- NOTE | ~2018-07-13 | HEMODYNAMI ---
PATIENT:JANICE JIMENEZ JR MEDICAL RECORD: [id number] : 47 [id number] ADMISSION DATE: 07/13/18 Generatedon:07/15/201816:04 Patient name: JANICE JIMENEZ Patient #: [id number] SSN: : 1945 Date of study: 07/15/2018 Page: Of Hemodynamic Procedure Report Patient Data Patient Demographics Procedure consent was obtained First Name: JANICE Gender: Male Last Name: TONY Suffix: Jr Guillen Initial: PRIYANKA : 1945 Patient #: [id number] Age: 73 year(s) Race: Unknown Additional ID: [id number] Contact details Address: [address] [place] [address] State: [place] City: [place] Zip code: [address] Past Medical History Allergies Allergen Reaction Date Comments Reported Other allergy 03/04/2017 Bendadryl Other allergy 03/05/2017 Benadryl Admission Admission Data Admission Date: 07/13/2018 Admission Time: 18:53 Arrival Date: 07/15/2018 Arrival Time: 18:53 Admit Source: Other Insurance Payor: Medicare Room #: D.2128 Height (in.): 66.93 BSA: 2.17 (m2) Height (cm.): 170 BMI: 37.02 (kg/m2) Weight (lbs.): 235.9 Weight (kg.): 107 Procedure Procedure Types Cath Procedure Diagnostic Procedure C [facility] w/Coronaries Sedation Charges Moderate Sedation up to 15 minutes Procedure Description Procedure Date Procedure Date: 07/15/2018 Procedure Start Time: 15:42 Procedure End Time: 16:01 Procedure Staff Name Function Jean Marie Mclean MD Performing Physician Claudia Chavez RT Monitor Stephanie Moise RT Scrub Levi Rowe RN Nurse Procedure Data Cath Procedure Fluoroscopy Diagnostic fluoroscopy Total fluoroscopy Time: 5.6 time: 5.6 min min Diagnostic fluoroscopy Total fluoroscopy dose: dose: 1613 mGy 1613 mGy Contrast Material Contrast Material Type Amount (ml) Isovue 300 127 Entry Location Entry Primary Successful Side Size Upsize Upsize Entry Closure Succes sful Closure Location (Fr) 1 (Fr) 2 (Fr) Remarks Device Remarks Femoral Right 5 Fr 6 Fr Exoseal artery Short Estimated blood loss: 5 ml Diagnostic catheters Device Type Used For End Catheter Placement MULTIPACK JL 4.0 5Fr Left Coronary catheter Angiography MULTIPACK 3DRC 5Fr Right Coronary catheter Angiography MULTIPACK Pigtail 5 Fr LV Angiography catheter Procedure Complications No complications Procedure Medications Medication Administration Route Dosage Oxygen etCO2 Nasal cannula 2 l/min Lidocaine 2% added to field 20 Heparin Flush Bag added to field 2 bags (1000units/500ml NS) 0.9% NaCl I.V. 100 ml/hr Versed I.V. 1 mg Fentanyl I.V. 50 mcg Versed I.V. 1 mg Fentanyl I.V. 50 mcg Heparin Bolus I.V. 4000 units Integrilin (Bolus I.V. 9.5 ml 2mg/ml) Hemodynamics Rest BSA: 2.17 (m2) O2 Consumption: Estimated: 250.01 (ml/min) O2 Consumption indexed : Estimated:115.21 (ml/min/m) Heart Rate: 69 (bpm) Pressure Samples Time Site Value (mmHg) Purpose Heart Use Rate(bpm) 15:48 LV 141/19,26 Snapshot 66 Gradients Valve Time Site Site Mean SEP/DFP Peak To Heart Use 1 2 (mmHg) (sec/min) Peak Rate (mmHg) (bpm) Aortic 15:49 LV AO 77 Snapshots Pre Cath Intra NCS Post Cath Vital Signs Time Heart Resp SPO2 etCO2 NIBP (mmHg) Rhythm Pain Sedation Rate (ipm) (%) (mmHg) Status Level (bpm) 15:26:41 68 15 92 0 156/86(132) NSR 0 (11) 10(A) , No pain 15:31:03 70 15 92 0 155/84(122) NSR 0 (11) 10(A) , No pain 15:35:27 80 13 96 0 141/77(105) NSR 0 (11) 10(A) , No pain 15:39:43 76 11 93 0 132/83(112) NSR 0 (11) 10(A) , No pain 15:43:55 76 13 92 0 147/84(111) NSR 0 (11) 9(A) , No pain 15:48:16 77 14 92 0 138/74(110) NSR 0 (11) 9(A) , No pain 15:52:31 72 12 93 0 131/81(116) NSR 0 (11) 9(A) , No pain 15:56:45 75 13 93 0 141/77(126) NSR 0 (11) 9(A) , No pain 16:01:02 74 14 92 0 145/83(114) NSR 0 (11) 10(A) , No pain Medications Time Medication Route Dose Verified Delivered Reason Notes Effectiveness by by 15:25:38 Oxygen etCO2 2 Jean Marie Buffie used for Nasal l/min [facility] Adam Rowe RN procedure cannula 15:25:45 Lidocaine 2% added 20ml Jean Marie Jean Marie for local to vial [facility] anesthetic field MD MORTENSEN 15:25:56 Heparin Flush added 2 Jean Marie Jean Marie used for Bag to bags [facility] procedure (1000units/500ml field MD MORTENSEN NS) 15:26:04 0.9% NaCl I.V. 100 Jean Marie Sims Per physician ml/hr St Adam Rowe RN, MD 15:30:27 Versed I.V. 1 mg Jean Marie Sims for sedation St Adam Rowe RN, MD 15:30:32 Fentanyl I.V. 50 Jean Marie Martinezie for sedation mcg St Adam Rowe RN, MD 15:36:58 Versed I.V. 1 mg Jean Marie Martinezie for sedation St Adam Rowe RN, MD 15:43:59 Fentanyl I.V. 50 Jean Marie Sims for sedation mcg St Adam Rowe RN, MD 15:50:41 Heparin Bolus I.V. 4000 Jean Marie Martinezie for verif ied units St Adam Rowe RN anticoagulation with dr MD vela 15:53:53 Integrilin I.V. 9.5 Jean Marie Martinezie for Waste d (Bolus 2mg/ml) ml St Adam Rowe RN antiplatelet 0.5 ml therapy of vial Procedure Log Time Note 14:51:20 Diagnostic Cath Status : Elective 14:51:37 Stephanie CHAVEZ(R) sent for patient. Start room use. 14:51:38 Time tracking: Regular hours (M-F 7:00 - 5:00) 14:51:42 Plan of Care:Hemodynamics will remain stable., Cardiac rhythm will remain stable., Comfort level will be maintained., Respiratory function will remain adequate., Patient/ family verbilizes understanding of procedure., Procedure tolerated without complication., Recovers from procedure without complications.. 15:25:28 Vital chart was started 15:25:38 Oxygen 2 l/min etCO2 Nasal cannula was administered by Levi Rowe RN; used for procedure; 15:25:45 Lidocaine 2% 20ml vial added to field was administered by Jean Marie Mclean MD; for local anesthetic; 15:25:56 Heparin Flush Bag (1000units/500ml NS) 2 bags added to field was administered by Jean Marie Mclean MD; used for procedure; 15:26:04 0.9% NaCl 100 ml/hr I.V. was administered by Levi Rowe RN; Per physician; 15:26:31 Patient received from Med II to [facility] 2 Alert and oriented. Tansferred to table in Supine position. 15:26:32 Warm blankets applied, and camden hugger turned on for patient comfort. 15:26:32 Correct patient and procedure confirmed by team. 15:26:35 Signed procedure consent form obtained from patient. 15:26:35 ECG and BP/O2 sat monitors applied to patient. 15:26:36 Baseline sample Acquired. 15:26:40 Rhythm: sinus rhythm 15:26:42 Full Disclosure recording started 15:26:48 H&P Date Dictated: 07/15/2018 New H&P dictated by physician.. 15:26:50 Pre-procedure instructions explained to patient. 15:26:50 Pre-op teaching completed and patient verbalized understanding. 15:26:51 Family in waiting room. 15:26:53 Patient NPO since Midnight. 15:26:55 Is the patient allergic to Iodine/contrast media? No. 15:26:56 Was the patient premedicated? No 15:27:16 Is patient on blood thinner?No 15:27:21 Patient diabetic? No. 15:27:23 Previous problem with sedation/anesthesia? No ? 15:27:26 Snore? Yes 15:27:26 Sleep apnea? Yes 15:27:27 Deviated septum? No 15:27:28 Opens mouth fully? Yes 15:27:29 Sticks out tongue? Yes 15:27:42 Airway obstruction? Yes copd, pneumonia 15:27:57 Dentures? Yes in tight 15:28:08 Pre procedure: right dorsailis pedis pulse 1+ Palpable, but thready & weak; easily obliterated 15:28:12 Pre procedure: left dorsailis pedis pulse 1+ Palpable, but thready & weak; easily obliterated 15:28:15 Patient pain scale 0/10 ?. 15:28:24 IV patent on arrival in left forearm with 0.9% NaCl at O. 15:29:45 Lab results completed and on chart. 15::48 Right groin area was prepped with chlora-prep and draped in sterile fashion 15::49 Alarms reviewed by R. N. 15::50 Sharps counted by scrub and verified by R.N. 15::53 Physician arrived 15::53 --------ALL STOP TIME OUT------ 15::54 Final Timeout: patient, procedure, and site verified with staff and physician. All members of the team are in agreement. 15:29:56 Right groin site verified by team. 15:29:59 Physical assessment completed. ASA score P 2 - A patient with mild systemic disease as per Jean Marie Mclean MD. 15:30:03 Sedation plan: IV Moderate Sedation Medication:Versed, Fentanyl 15:30:07 Use device set Femoral Dx 15:30:08 ACIST Syringe (85933) opened to sterile field. 15:30:09 Bag Decanter (2002S) opened to sterile field. 15:30:09 Medline Cath Pack ([id number]) opened to sterile field. 15:30:10 DIAGNOSTIC WIRE .035 260cm J wire (494508) opened to sterile field. 15:30:11 ACIST Hand Control (47138) opened to sterile field. 15:30:11 ACIST Manifold (56072) opened to sterile field. 15:30:12 DIAGNOSTIC Multipack 5Fr catheter set (TD3484) opened to sterile field. 15:30:12 Tegaderm 4 x 4 (1626W) opened to sterile field. 15:30:13 SHEATH 5FR [place] (ZAA252) opened to sterile field. 15:30:27 Versed 1 mg I.V. was administered by Levi Rowe RN; for sedation; 15:30:32 Fentanyl 50 mcg I.V. was administered by Levi Rowe RN; for sedation; 15:35:51 Admit Source: Other 15:36:01 Patient Weight : 235.9 lbs 15:36:18 Patient Height : 66.93 inches 15:36:21 Arrival Date: 07/15/2018 6:53:00 PM 15:36:55 Insurance Payor : Medicare 15:36:58 Versed 1 mg I.V. was administered by Levi Rowe RN; for sedation; 15:37:54 Zero performed for pressure channel P1 15:42:17 Procedure started. 15:42:21 Local anesthetic to right femoral artery with Lidocaine 2% by Jean Marie Mclean MD.INITIAL ACCESS ONLY 15:42:29 A 5 Fr sheath was inserted into the Right Femoral artery 15:42:37 A MULTIPACK JL 4.0 5Fr catheter was advanced over the wire and used for Left Coronary Angiography. 15:43:34 LCA angiography performed. 15:43:38 Injector settings: Ml/sec: 3, Volume: 6, 15:43:59 Fentanyl 50 mcg I.V. was administered by Levi Rowe RN; for sedation; 15:45:51 Catheter removed. 15:46:24 A MULTIPACK 3DRC 5Fr catheter was advanced over the wire and used for Right Coronary Angiography. 15:46:53 RCA angiography performed. 15:47:37 Injector settings: Ml/sec: 3, Volume: 6, 15:47:38 Catheter removed. 15:47:43 A MULTIPACK Pigtail 5 Fr catheter was advanced over the wire and used for LV Angiography. 15:48:26 LV hemodynamics recorded. 15:48:27 LV gram done using ZENDEJAS 15:48:30 Injector settings: Ml/sec: 5, Volume: 15, 15:49:10 EF : 35 % 15:49:12 Catheter removed. 15:49:13 Proceeding to intervention. 15:49:45 SHEATH 6FR [place] (ZFB016) opened to sterile field. 15:49:46 INFLATOR Merit BasixCompak (LJ8363) opened to sterile field. 15:49:47 WHISPER 300cm guide wire ([id number]) opened to sterile field. 15:50:03 GUIDE 6FR JL 6.0 catheter (SE1HX20) opened to sterile field. 15:50:41 Heparin Bolus 4000 units I.V. was administered by Levi Rowe RN; for anticoagulation; verified with dr vela 15:50:53 Sheath upsized to a 6 Fr Short. 15:51:01 6 Fr jl 4 guide catheter was inserted over the wire 15:51:07 whisper wire advanced. 15:53:53 Integrilin (Bolus 2mg/ml) 9.5 ml I.V. was administered by Levi Rowe RN; for antiplatelet therapy; Wasted 0.5 ml of vial 15:57:59 Wire removed. 15:58:02 Guide catheter removed. 15:58:39 EXOSEAL 6Fr (EX600) opened to sterile field. 15:59:13 Sheath removed intact; hemostasis achieved with Exoseal to the Right Femoral artery. 15:59:17 Procedure ended.(Physican Out) 15:59:33 Fluoroscopy time 05.60 minutes. 15:59:56 Flurop Dose total: 1613 15:59:56 Fluoroscopy dose: 1613 mGy 16:00:03 Contrast amount:Isovue 300 127ml. 16:00:05 Sharps counted by scrub and verified by R.N. 16:00:08 Insertion/operative site no bleeding no hematoma. 16:00:10 Post-op/insertion site Right Femoral artery dressed using a 4 x 4 and Tegaderm. 16:00:13 Post right femoral artery:stable 16:00:15 Post Procedure Pulses reassessed and unchanged 16:00:19 Post procedure rhythm: unchanged. 16:00:34 Estimated blood loss: 5 ml 16:00:35 Post procedure instruction explained to patient.Patient verbalizes understanding. 16:00:35 Patient needs reinforcement of post procedure teaching. 16:00:46 Procedure type changed to Cath procedure, Diagnostic procedure, LHC, LHC w/Coronaries, Sedation Charges, Moderate Sedation up to 15 minutes 16:01:14 Procedure and supply charges have been captured, reviewed, submitted and are correct. 16:01:18 Procedure Complication : No complications 16:01:21 Vital chart was stopped 16:01:21 See physician's report for complete and final results. 16:01:23 Report given to [facility]. 16:01:26 Patient transfered to [facility] with Stretcher. 16:01:28 Procedure ended. 16:01:28 Full Disclosure recording stopped 16:01:33 End room use (Document Last) 16:02:20 No plavix to be given at this time per Dr Mclean. Device Usage Item Name Manufacture Quantity Catalog Hospital Part Current Minimal L ot# / Number Charge Number Stock Stock Serial# Code ACIST Acist 1 13756 546676 186223 752332 20 Syringe Medical (46235) Systems Inc Bag Microtek 1 829807 05318 686582 5 Decanter Medical Inc. () Medline Medline 1 [id number] 635985 90965 065080 5 Cath Pack ([id number]) DIAGNOSTIC [facility] [place] 1 378088 901916 716993 564918 30 WIRE .035 260cm J wire (085517) ACIST Hand Acist 1 57643 488285 432692 732426 5 Control Medical (64362) Systems Inc ACIST Acist 1 56054 640388 277496 514210 5 Manifold Medical (11853) Systems Inc DIAGNOSTIC Cardinal 1 XC3681 059908 44390 520371 30 Multipack Health 5Fr catheter set (TP8447) Tegaderm 4 3M 1 1626W 517750 680947 321057 5 x 4 (1626W) SHEATH 5FR Terumo 1 UUI912 439623 471593 613068 5 [place] (RUG495) MULTIPACK Cardinal 1 779959 5 JL 4.0 5Fr Health catheter MULTIPACK Cardinal 1 239550 5 3DRC 5Fr Health catheter MULTIPACK Cardinal 1 719385 5 Pigtail 5 Health Fr catheter SHEATH 6FR Terumo 1 OAS724 509142 221405 270474 40 [place] (UFH082) INFLATOR [facility] 1 SO7754 185915 037374 314285 15 [facility] Medical BasixCompak (UX9569) WHISPER Miller 1 [id number] 978518 983234 708497 5 300cm guide Vascular wire ([id number]) GUIDE 6FR Medtronic 1 [id number] 213382 27901 965434 0 JL 6.0 catheter (RA6NY04) EXOSEAL 6Fr Cardinal 1 EX600 256894 915585 355852 10 (EX600) Health Signature Audit [place] Stage Time Signature Unsigned Intra-Procedure 07/15/2018 Claudia Chavez 4:04:51 PM RT(R) Signatures Monitor : Claudia Chavez RT Signature : Date : Time : [address] [place] [address]
--- NOTE | ~2018-07-13 | CN ---
PATIENT NAME:JANICE JIMENEZ JR MEDICAL RECORD: [id number] : 47 LOCATION:D. D.2128 ADMIT DATE: 07/13/18 ACCOUNT: [id number] CONSULTING PHYSICIAN: RADHA BELL MD REFERRING PHYSICIAN: OMI MONGE DO DATE OF CONSULTATION: 07/14/2018 CONSULT REQUESTING PHYSICIAN: Dr. Banda. REASON FOR CONSULTATION: Acute exacerbation of chronic obstructive pulmonary disease. HISTORY OF PRESENT ILLNESS: Mr. Jimenez is a 73-year-old gentleman who has a history of COPD, obstructive sleep apnea, oxygen at night. His was sick a few days ago and that he got upper respiratory tract infection. He has worsening shortness of breath. The patient came into the ER. He is coughing. He is wheezing. He has shortness of breath with mild exertion. In the ER, he has a positive D-dimer, but the CTA was negative for PE. REVIEW OF SYSTEMS: As in history of present illness. PAST MEDICAL HISTORY: 1. COPD. 2. Obstructive sleep apnea. 3. Coronary artery disease. 4. Hypertension. 5. He has a AAA repair in 2004. PAST SURGICAL HISTORY: 1. He has a knee surgery. 2. He has a cardiac catheterization and stent placement. 3. Herniorrhaphy. ALLERGIES: HE IS ALLERGIC TO BENADRYL. MEDICATION: On PingThings is reviewed. PERSONAL AND SOCIAL HISTORY: The patient is an ex-smoker. He is a nondrinker. FAMILY HISTORY: Noncontributory. PHYSICAL EXAMINATION: GENERAL: The patient is now lying comfortably. He is not in acute distress. VITAL SIGNS: The blood pressure is 150/72, pulse is 76, respiration is 20, temperature 97.7, SpO2 is 91% on 3 liters nasal cannula. HEENT: Conjunctivae are pink. Sclerae are not icteric. NECK: Supple, no JVD. CHEST: The chest excursion is minimal on both sides. Wheeze on forceful expiration. HEART: Rhythm regular, normal sound, no murmur. ABDOMEN: Soft, bowel sounds present. No hepatosplenomegaly. RECTAL: Deferred. EXTREMITIES: No cyanosis, no clubbing, no pedal edema. CENTRAL NERVOUS SYSTEM: The patient is awake and alert. There are no obvious cranial nerve abnormality. The gait was not tested. CONSULT REPORT [id number] JANICE JIMENEZ IMAGING: CTA of the chest was negative for PE. There are no acute infiltrates. There is showing emphysematous changes. OTHER LABORATORY DATA: CBC: WBC is 8.4, hemoglobin 14.3, hematocrit 42.1, the platelet count 163. ABG: The pH was 7.40, pCO2 was 41, pO2 was 56, and bicarbonate is 25.5. IMPRESSION: 1. Kojhi-nk-fpqirih hypoxic respiratory failure. 2. Acute exacerbation of chronic obstructive pulmonary disease. 3. Tracheobronchitis. 4. Obstructive sleep apnea. 5. Ex-smoker. 6. History of coronary artery disease, hypertension. RECOMMENDATION: 1. Continue Rocephin and Zithromax IV. 2. Methylprednisolone IV. 3. Albuterol/ipratropium nebulizer. 4. Brovana/budesonide nebulizer. 5. Supplemental oxygen. 6. BiPAP at night as required. 7. Follow up labs and chest radiograph. 8. DVT prophylaxis. Dr. Banda, thank you for involving me in the care of Mr. Jimenez. TRANSINT:[id number] Voice Confirmation ID: [id number] DOCUMENT ID: [id number] RADHA BELL MD CC: [id number] DICTATION DATE: 07/14/18 1536 SKIING INSTRUCTOR: 07/14/18 1610 ADM IN [place] [id number] [place] [address]
[2018-07-13] MEDS ORDERED: ASPIRIN325 MG PO (15:12)
[2018-07-13] MEDS ORDERED: NIFEDIPINE ER90 MG PO (15:12)
[2018-07-13 15:16] VITALS: BP 153/78
[2018-07-13 15:44] LABS: BASOPHILS 0.2 % (0-2); EOSINOPHILS 0.8 % (0-7); HEMATOCRIT 42.1 % (42.0-54.0); HEMOGLOBIN 14.3 g/dL (13.5-17.5); IMMATURE GRANULOCYTES 0.2 % (0-5); LYMPHOCYTES 23.3 % (15-50); MCV 94.2 fL (80.0-100.0); MEAN PLATELET VOLUME 11.5 fL (7.4-10.4); MONOCYTES 10.8 % (2-11); NEUTROPHILS 64.7 % (40-80); PLATELET COUNT 163 10x3/uL (130-400); RBC 4.47 10x6/uL (4.20-6.10); RDW 12.6 % (11.5-14.5); WBC 8.4 10x3/uL (4.8-10.8)
[2018-07-13 15:45] VITALS: BP 155/70
[2018-07-13 16:06] LABS: INR 1.11 (0.85-1.17); PROTIME 13.8 SECONDS (11.6-15.0)
[2018-07-13 16:08] LABS: D-DIMER-QUANTITATIVE 1.09 ug/mLFEU (0.20-0.54)
[2018-07-13 16:11] LABS: ALBUMIN 3.5 g/dL (3.4-5.0); ALKALINE PHOSPHATASE 61 U/L (46-116); ALT (SGPT) 22 U/L (10-68); BILIRUBIN - TOTAL 0.29 mg/dL (0.2-1.3); CALC OSMOLALITY 286 mosm/kg (275-300); CALCIUM 8.9 mg/dL (8.5-10.1); CARBON DIOXIDE 26.5 mmol/L (21.0-32.0); CHLORIDE - SERUM 106 mmol/L (98-107); CREATININE - SERUM 1.2 mg/dL (0.6-1.3); GLUCOSE 95 mg/dL (74-106); POTASSIUM - SERUM 3.9 mmol/L (3.5-5.1); PROTEIN - SERUM 7.5 g/dL (6.4-8.2); SODIUM 142 mmol/L (136-145); UREA NITROGEN 23 mg/dL (7-18); eGFR NON AFRICAN AMERICAN 63 mL/min (90-120)
[2018-07-13 16:15] VITALS: BP 147/61
[2018-07-13 16:23] LABS: CKMB 2.5 U/L (0.0-3.6); CREATINE KINASE 156 UL (21-232); PRO BNP 524 pg/mL (0-125); TROPONIN-I < 0.017 ng/mL (0.000-0.060)
[2018-07-13 16:45] VITALS: BP 157/71
--- NOTE | 2018-07-13 17:30 | NUR ---
PT LEAVING FOR ORDERED CT SCAN, TRANSPORTED VIA STRETCHER. NO SIGNS OF DISTRESS NOTED WHEN LEAVING.
[2018-07-13 18:00] VITALS: BP 156/66
--- NOTE | 2018-07-13 18:07 | NUR ---
PT SITTING IN SEMI-TELLO'S, NO SIGNS OF DISTRESS. RESPIRATIONS EVEN AND UNLABORED. FAMILY MEMBER AT THE BEDSIDE. CALL LIGHT IN REACH, WILL CONTINUE TO MONITOR.
--- NOTE | 2018-07-13 18:18 | NUR ---
AHA DINNER TRAY GIVEN TO PT.
--- NOTE | 2018-07-13 19:01 | NUR ---
HAND-OFF REPORT GIVEN TO CYNTHIA Edward RN USING SBAR COMMUNICATION.
[2018-07-14] VITALS (7 sets, daily range): BP systolic 119–176; BP diastolic 66–82; Ht 170.2 cm; Wt 107.3 kg
--- NOTE | 2018-07-14 03:50 | NUR ---
RN NOTE: PATIENT RESTING COMFORTABLY IN BED. RESPIRATIONS ARE EVEN AND UNLABORED. RESPIRATIONS ARE EVEN AND UNLABORED. NO S/S OF DISTRESS. NO C/O PAIN. CALL LIGHT WITHIN REACH. WILL CPOC.
[2018-07-14 05:54] LABS: BASOPHILS 0.1 % (0-2); EOSINOPHILS 0 % (0-7); HEMATOCRIT 41.3 % (42.0-54.0); HEMOGLOBIN 13.9 g/dL (13.5-17.5); IMMATURE GRANULOCYTES 0.3 % (0-5); LYMPHOCYTES 16.2 % (15-50); MCH 31.9 pg (26.0-34.0); MCHC 33.7 g/dL (31.0-37.0); MCV 94.7 fL (80.0-100.0); MEAN PLATELET VOLUME 11.5 fL (7.4-10.4); NEUTROPHILS 81.4 % (40-80); PLATELET COUNT 152 10x3/uL (130-400); RBC 4.36 10x6/uL (4.20-6.10); RDW 12.7 % (11.5-14.5); WBC 7.1 10x3/uL (4.8-10.8)
[2018-07-14 06:34] LABS: ALBUMIN 3.3 g/dL (3.4-5.0); ALKALINE PHOSPHATASE 59 U/L (46-116); ALT (SGPT) 22 U/L (10-68); BILIRUBIN - TOTAL 0.39 mg/dL (0.2-1.3); CALC OSMOLALITY 287 mosm/kg (275-300); CALCIUM 8.8 mg/dL (8.5-10.1); CARBON DIOXIDE 23.1 mmol/L (21.0-32.0); CHLORIDE - SERUM 106 mmol/L (98-107); PROTEIN - SERUM 7.1 g/dL (6.4-8.2); SODIUM 141 mmol/L (136-145); UREA NITROGEN 20 mg/dL (7-18); eGFR NON AFRICAN AMERICAN 78 mL/min (90-120)
[2018-07-14 06:35] LABS: GLUCOSE 168 mg/dL (74-106)
[2018-07-14] MEDS ORDERED: OPTIVE SENSITI1 EACH LEFT EYE (08:49)
[2018-07-14] MEDS ORDERED: OCUFLOX 0.3 % OP5 ML RIGHT EYE (08:50)
[2018-07-14] MEDS ORDERED: OPTIVE SENSITI1 EACH RIGHT EYE (08:55)
--- NOTE | 2018-07-14 10:30 | NUR ---
ALERT AND ORIENTED X4. SITTING UP IN BED. CALLED VASCULAR ACCESS NURSE X2 FOR VENOUS ACCESS. SPOUSE AT BEDSIDE. DENIES ANY OTHER NEEDS. CONTINUE PLAN OF CARE AND SAFETY PRECAUTIONS. SINUS RHYTHM 75 ON TELEMETRY.
--- NOTE | 2018-07-14 11:42 | MORECARE ---
CASE MANAGEMENT DISCHARGE SUMMARY PATIENT: JANICE JIMENEZ JR UNIT: [id number] ADM DATE: 07/13/18 AGE: 73 : 46 SEX: M ROOM/BED: D.2128 AUTHOR: BETTY RITCHIE PHYSICIAN: REFERRING PHYSICIAN: OMI MONGE DO DATE OF SERVICE: 07/14/18 Discharge Plan Patient Name: JANICE JIMENEZ [facility] [facility] 1945 Planned Disposition: Anticipated Discharge Date: Discharge Date: Expected LOS: Initial Reviewer: [email or web address] Initial Review Date: 07/14/2018 Generated: 07/14/18 12:42 pm Patient Name: JANICE JIMENEZ Page [phone] at 1142 All edits/amendments must be made on the electronic document DICTATION DATE: 07/14/18 1142 FISHING ROD MECHANIC: TREVIN 07/14/18 1142 RPT#: [id number] DC DATE: STATUS: ADM IN [facility] [address] [place] [address] END OF REPORT
--- NOTE | 2018-07-14 17:11 | NUR ---
ALERT AND ORIENTED X4. ASSIST TO BEDSIDE COMMODE. ASSIST BACK TO BED. REPORTS CHEST PAIN. EKG CHANGES FROM PRIOR EKG 07/13/18. SUPERVISOR TAPING UNABLE TO DRAW BLOOD. NOTIFY GEOFF WATERS OF CHANGES. CARDIOLOGY CONSULT ORDERED VIA TELEPHONE.
[2018-07-14 18:09] LABS: CKMB 6.6 U/L (0.0-3.6); CREATINE KINASE 131 UL (21-232)
[2018-07-14 18:15] LABS: TROPONIN-I 0.136 ng/mL (0.000-0.060)
--- NOTE | 2018-07-14 18:23 | NUR ---
ALERT AND ORIENTED X4. SITTING UP IN BED. MORPHINE ADMINISTERED FOR CHEST PAIN ORDERED. NOTIFY OF ELEVATED TROPONIN 0.136. CONTINUE PLAN OF CARE AND SAFETY PRECAUTIONS. 107 SINUS TACH ON TELEMETRY.
--- NOTE | 2018-07-14 19:30 | NUR ---
INTRODUCED SELF TO PATIENT, PATIENT ON THE PHONE WITH DAUGHTER. RESPIRATIONS EVEN AND UNLABORED, BED IN LOWEST POSITION, CALL LIGHT WITHIN REACH. NO NEEDS AT THIS TIME.
[2018-07-14 22:04] LABS: CREATINE KINASE 350 UL (21-232)
[2018-07-14 22:05] LABS: TROPONIN-I 6.911 ng/mL (0.000-0.060)
--- NOTE | 2018-07-14 22:10 | NUR ---
LAB CALLED REGARDING TROPONIN, IT HAS INCREASED TO 6.911, PAGED CARDIOLOGY REGARDING LAB VALUE AND NURSE IN CHARGE OF PT GETTING A EKG. DR. BRANDT STATED NO MORE CARDIAC ENZYMES NEEDING TO BE DRAWN. WILL CANCEL LABS.
--- NOTE | 2018-07-14 22:17 | NUR ---
PATIENT STATED DIDN'T WANT TO BE SHAVED FOR EKG, ADVISED EKG WILL NOT STICK WITHOUT SHAVING. NO EKG COMPLETED PER PT REQUEST.
[2018-07-15] VITALS (7 sets, daily range): BP systolic 128–175; BP diastolic 70–89
--- NOTE | 2018-07-15 03:57 | NUR ---
PATIENT SLEEPING WITH CPAP ON, ROCEPHIN FINISHED INFUSING. RESP EVEN AND UNLABORED. NO S/SX OF DISCOMFORT OR PAIN. BED IN LOWEST POSITION, CALL LIGHT WITHIN REACH.
--- NOTE | 2018-07-15 05:40 | NUR ---
MORNING MEDS GIVEN, PATIENT RESTING QUIETLY, LAB IN ROOM FOR MORNING LAB DRAW. BED IN LOWEST POSITION, CALL LIGHT WITHIN REACH.
[2018-07-15 06:14] LABS: BASOPHILS 0.1 % (0-2); EOSINOPHILS 0 % (0-7); HEMATOCRIT 41.9 % (42.0-54.0); HEMOGLOBIN 13.9 g/dL (13.5-17.5); IMMATURE GRANULOCYTES 0.3 % (0-5); LYMPHOCYTES 9.1 % (15-50); MCH 31.7 pg (26.0-34.0); MCHC 33.2 g/dL (31.0-37.0); MCV 95.7 fL (80.0-100.0); MEAN PLATELET VOLUME 11.9 fL (7.4-10.4); MONOCYTES 4.9 % (2-11); NEUTROPHILS 85.6 % (40-80); PLATELET COUNT 172 10x3/uL (130-400); RBC 4.38 10x6/uL (4.20-6.10)
[2018-07-15 06:38] LABS: WBC 12.2 10x3/uL (4.8-10.8)
[2018-07-15 06:41] LABS: ALBUMIN 3.3 g/dL (3.4-5.0); ALKALINE PHOSPHATASE 55 U/L (46-116); BILIRUBIN - TOTAL 0.39 mg/dL (0.2-1.3); CALC OSMOLALITY 295 mosm/kg (275-300); CARBON DIOXIDE 26.5 mmol/L (21.0-32.0); CHLORIDE - SERUM 108 mmol/L (98-107); CREATININE - SERUM 0.9 mg/dL (0.6-1.3); GLUCOSE 154 mg/dL (74-106); PROTEIN - SERUM 6.9 g/dL (6.4-8.2); SODIUM 146 mmol/L (136-145); UREA NITROGEN 18 mg/dL (7-18); eGFR NON AFRICAN AMERICAN 88 mL/min (90-120)
[2018-07-15 06:46] LABS: ALT (SGPT) 33 U/L (10-68)
--- NOTE | 2018-07-15 07:15 | NUR ---
REPORT RECEIVED FROM MUSEUM CURATOR. PATIENT AWAKE, ALERT AND ORIENTED X 4. VITAL SIGNS ARE GOOD. PATIENT DENIES ANY NEEDS OR PAIN. WILL CONTINUE WITH PLAN OF CARE. SR UP X 2 BED IN LOW POSITION AND CALL LIGHT IN REACH.
--- NOTE | 2018-07-15 10:06 | NUR ---
PATIENT RESTING IN BED. AWAKE, ALERT AND ORIENTED X 4. ORDER RECIEVED FOR NPO AND PATIENT TO HAVE HEART CATH THIS AFTERNOON. FAMILY AT BEDSIDE.VITAL SIGNS ARE GOOD. WILL CONTINUE WITH PLAN OF CARE. SR UP X 2 CALL LIGHT IN REACH CALL LIGHT IN REACH.
--- NOTE | 2018-07-15 10:12 | NUR ---
PATIENT UNCHANGED. FAMILY AT BEDSIDE.
--- NOTE | 2018-07-15 14:28 | NUR ---
PATIENT UNCHANGED. RESTING QUIETLY IN BED WITH FAMILY AT BEDSIDE. AWAITING CALL FROM PRODUCT CONSULTANT. WILL CONTINUE TO MONITOR.
--- NOTE | 2018-07-15 15:15 | NUR ---
PATIENT IS STABLE AND VS ARE GOOD. PATIENT TO E COMMERCE WEB DEVELOPER VIA BED AND E [employer] DEVELOPER PERSONNEL.
--- NOTE | 2018-07-15 19:22 | NUR ---
INTRODUCED SELF TO PATIENT, REMINDED PATIENT CAN ONLY LAY FLAT UNTIL 2100. BED IN LOWEST POSITION, CALL LIGHT IN REACH. NO NEEDS AT THIS TIME. RESP EVEN AND UNLABORED.
--- NOTE | 2018-07-15 21:41 | NUR ---
PATIENT WAS INSTRUCTED TO LAY FLAT UNTIL 2100, DID FULL BED CHANGE WHEN PATIENT GOT UP TO USE RESTROOM. PATIENT GIVEN A NEW GOWN, FRESH WATER. NO S/SX OF DISCOMFORT OR PAIN AT THIS TIME. BED IN LOWEST POSITION, CALL LIGHT WITHIN REACH.
[2018-07-16] VITALS: BP 131/64
[2018-07-16 05:18] LABS: BASOPHILS 0 % (0-2); EOSINOPHILS 0 % (0-7); HEMATOCRIT 43.2 % (42.0-54.0); IMMATURE GRANULOCYTES 0.5 % (0-5); MCH 31.3 pg (26.0-34.0); MCHC 32.4 g/dL (31.0-37.0); MCV 96.6 fL (80.0-100.0); MEAN PLATELET VOLUME 11.8 fL (7.4-10.4); MONOCYTES 4.7 % (2-11); NEUTROPHILS 87.8 % (40-80); PLATELET COUNT 185 10x3/uL (130-400); RBC 4.47 10x6/uL (4.20-6.10); RDW 13.1 % (11.5-14.5); WBC 12.7 10x3/uL (4.8-10.8)
[2018-07-16 07:51] LABS: ALKALINE PHOSPHATASE 51 U/L (46-116); ALT (SGPT) 30 U/L (10-68); BILIRUBIN - TOTAL 0.35 mg/dL (0.2-1.3); CALCIUM 8.7 mg/dL (8.5-10.1); CARBON DIOXIDE 27.1 mmol/L (21.0-32.0); CHLORIDE - SERUM 107 mmol/L (98-107); GLUCOSE 144 mg/dL (74-106); PROTEIN - SERUM 6.5 g/dL (6.4-8.2); SODIUM 143 mmol/L (136-145); eGFR NON AFRICAN AMERICAN 78 mL/min (90-120)
[2018-07-16 08:00] VITALS: BP 152/73
[2018-07-16 08:00] LABS: CALC OSMOLALITY 292 mosm/kg (275-300); UREA NITROGEN 26 mg/dL (7-18)
[2018-07-16 08:14] VITALS: BP 152/73
--- NOTE | 2018-07-16 10:51 | MORECARE ---
CASE MANAGEMENT DISCHARGE SUMMARY PATIENT: JANICE JIMENEZ JR UNIT: [id number] ADM DATE: 07/13/18 AGE: 73 : 46 SEX: M ROOM/BED: D.2128 AUTHOR: BETTY RITCHIE PHYSICIAN: REFERRING PHYSICIAN: OMI MONGE DO DATE OF SERVICE: 07/16/18 Discharge Plan Patient Name: JANICE JIMENEZ Facility: [facility]:[place] : 1945 Planned Disposition: Anticipated Discharge Date: Discharge Date: Expected LOS: Initial Reviewer: [email or web address] Initial Review Date: 07/14/2018 Generated: 07/16/18 11:51 am External Providers External Provider: Lakesha Next Contact Date: 07/16/2018 Service Request Date: Service Type: Resolution: Reviewer: Comments: Last DP export: 07/14/18 10:42 a Patient Name: JANICE JIMENEZ Page [phone] at 1051 All edits/amendments must be made on the electronic document DICTATION DATE: 07/16/18 1050 MARINE DIVER: TREVIN 07/16/18 1050 RPT#: [id number] DC DATE: STATUS: ADM IN [facility] [address] [place] [address] END OF REPORT
--- NOTE | 2018-07-16 11:01 | MORECARE ---
CASE MANAGEMENT DISCHARGE SUMMARY PATIENT: JANICE JIMENEZ JR UNIT: [id number] ADM DATE: 07/13/18 AGE: 73 : 46 SEX: M ROOM/BED: D.2128 AUTHOR: BETTY RITCHIE PHYSICIAN: REFERRING PHYSICIAN: OMI MONGE DO DATE OF SERVICE: 07/16/18 Discharge Plan Patient Name: JANICE JIMENEZ Facility: [facility]:[place] : 1945 Planned Disposition: Home Anticipated Discharge Date: 07/16/18 Discharge Date: Expected LOS: 3 Initial Reviewer: [email or web address] Initial Review Date: 07/14/2018 Generated: 07/16/18 12:01 pm DCPIA - Discharge Planning Initial Assessment Updated by LOU: Amador Walker on 07/16/18 10:59 am * Is the patient Alert and Oriented? Yes * How many steps to enter\exit or inside your home? * PCP DR. CASTELLON * Pharmacy [facility] * Preadmission Environment Home with Family * ADLs Independent * Equipment Cane CPAP Oxygen Rolling Walker * Other Equipment HOME OXYGEN ONLY [facility] - PROVIDER * List name and contact numbers for known caregivers / representatives who currently or will assist patient after discharge: EDITH JIMENEZ, SPOUSE, * Verbal permission to speak to the caregivers and representatives has been obtained from the patient. Yes * Community resources currently utilized None * Please name any agencies selected above. NONE * Additional services required to return to the preadmission environment? No * Can the patient safely return to the preadmission environment? Yes * Has this patient been hospitalized within the prior 30 days at any hospital? No Coverage Notice Reviewer: [id number] Marcelina Walker Notice Issued Date-Time: 07/16/2018 10:40 Notice Type: IM Discharge Notice Notice Delivered To: Patient Relationship to Patient: Desk Representative Name: Delivery Method: HAND - Hand Delivered Norma Days: Prior Verbal Notification: Recipient Understood Notice: Yes Recipient Signature: Yes Med Rec Note Co-signed by Attending: Coverage Notice Comment: Last DP export: 07/16/18 9:51 a Patient Name: JANICE JIMENEZ Page [phone] at 1101 All edits/amendments must be made on the electronic document DICTATION DATE: 07/16/181100 COLOR PRINTER OPERATOR: TREVIN 07/16/181100 RPT#: [id number] DC DATE: STATUS: ADM IN [facility] [address] [place] [address] END OF REPORT
--- NOTE | 2018-07-16 11:09 | MORECARE ---
CASE MANAGEMENT DISCHARGE SUMMARY PATIENT: JANICE JIMENEZ JR UNIT: [id number] ADM DATE: 07/13/18 AGE: 73 : 46 SEX: M ROOM/BED: D.9151 AUTHOR: BETTY RITCHIE PHYSICIAN: REFERRING PHYSICIAN: OMI MONGE DO DATE OF SERVICE: 07/16/18 Discharge Plan Patient Name: JANICE JIMENEZ Facility: [facility]:[place] : 1945 Planned Disposition: Home Anticipated Discharge Date: 07/16/18 Discharge Date: Expected LOS: 3 Initial Reviewer: [email or web address] Initial Review Date: 07/14/2018 Generated: 07/16/18 12:09 pm Comments DCP- Discharge Planning Updated by [email or web address]: Amador Walker on 07/16/18 10:[address] Patient Name: JANICE JIMENEZ Admission Status: ER Accout number: [id number] Admission Date: 07-13-2018 : 1945 Admission Diagnosis:SHORTNESS OF BREATH Attending: OMI MONGE Current LOS: 3 Anticipated DC Date: 07-16-2018 Planned Disposition: Home Primary Insurance: MEDICARE A & B Discharge Planning Comments: CM MET WITH PT AND SPOUSE IN ROOM TO DISCUSS DISCHARGE PLANNING AND NEEDS. JANICE JIMENEZ provided verbal consent to discuss current and ongoing needs with/in the presence of SPOUSE, EDITH. PT REPORTS LIVING AT HOME INDEPENDENTLY WITH SPOUSE. PT HAS CANE, CPAP, HOME OXYGEN AND WALKER WITH WHEELS SEAT AND BRAKES, MEDICAL EQUIPMENT PROVIDER IS [facility]. PT HAS NO OUTSIDE SERVICES ASSISTING IN THE HOME. CM DISCUSSED AVAILABILITY OF HOME HEALTH, REHAB SERVICES AND MEDICAL EQUIPMENT. PT DENIES DISCHARGE NEEDS OTHER THAN PORTABLE OXYGEN, HE WAS JUST TESTED AT 87%, ROOM AIR AT REST. PT REPORTS HIS WILL PICK HER UP FOR DISCHARGE HOME. IMPORTANT MESSAGE FROM MEDICARE PROVIDED AND EXPLAINED. CM CALLED [facility], , SPOKE TO LIZETTE AND PROVIDED ORDER INFORMATION, FAXED REFERRAL FOR PORTABLE OXYGEN TO [facility] AT [phone]. [facility] TO ARRANGE DELIVERY OF PORTABLE OXGYEN TO ROOM FOR DISCHARGE HOME TODAY. FRUIT DUMPER NURSE NOTIFIED. Back Joiner: Amador Walker : DCPIA - Discharge Planning Initial Assessment Updated by [id number]: Amador Walker on 07/16/18 10:59 am * Is the patient Alert and Oriented? Yes * How many steps to enter\exit or inside your home? * PCP DR. CASTELLON * Pharmacy [facility] [address] * Preadmission Environment Home with Family * ADLs Independent * Equipment Cane CPAP Oxygen Rolling Walker * Other Equipment HOME OXYGEN ONLY [facility] - PROVIDER * List name and contact numbers for known caregivers / representatives who currently or will assist patient after discharge: EDITH JIMENEZ, SPOUSE, * Verbal permission to speak to the caregivers and representatives has been obtained from the patient. Yes * Community resources currently utilized None * Please name any agencies selected above. NONE * Additional services required to return to the preadmission environment? No * Can the patient safely return to the preadmission environment? Yes * Has this patient been hospitalized within the prior 30 days at any hospital? No Coverage Notice Reviewer: [id number] - Amador Walker Notice Issued Date-Time: 07/16/2018 10:40 Notice Type: IM Discharge Notice Notice Delivered To: Patient Relationship to Patient: Certified Social Workers In Health Care Name: Delivery Method: HAND - Hand Delivered Norma Days: Prior Verbal Notification: Recipient Understood Notice: Yes Recipient Signature: Yes Med Rec Note Co-signed by Attending: Coverage Notice Comment: Last DP export: 07/16/18 10:01 a Patient Name: JANICE JIMENEZ Page [phone] at 1109 All edits/amendments must be made on the electronic document DICTATION DATE: 07/16/181107 SPORTS MEDICINE SPECIALIST: TREVIN 07/16/181107 RPT#: [id number] DC DATE: STATUS: ADM IN [facility] [address] [place] [address] END OF REPORT
[2018-07-16 11:41] VITALS: BP 161/78
[2018-07-16] MEDS ORDERED: ALDACTONE25 MG PO (12:52)
[2018-07-16] MEDS ORDERED: MUCINEX600 MG PO (12:53)
--- NOTE | 2018-07-16 12:55 | NUR ---
Nutrition follow-up: Pt has been NPO for heart cath today PO intake of low sodium diet has been ~100% of meals Labs reviewed Wt: 236# RDN following.
[2018-07-16] MEDS ORDERED: DOXYCYCLINE HY100 M2 PO (13:04)
[2018-07-16] MEDS ORDERED: PREDNISONE10 MG PO (13:04)
--- NOTE | 2018-07-16 15:35 | NUR ---
PATIENT STABLE AND VS GOOD.DISCHARGE ORDERS RECEIVED. DISCHARGE INSTRUCTION INFORMATION GIVEN VERBALLY AND WRITTEN. PATIENT AND VERBALIZED UNDERSTANDING AND PAPERS SIGNED. PATIENT TO FRONT DOOR VIA WC AND HOSPITAL PERSONNEL. PATIENT DC TO PRIVATE VEHICLE AND TO SELF HOME CARE.PORTABLE O2 PER NC AT 4L/MIN. O2 SAT 97%.
--- NOTE | 2018-07-24 12:54 | CN ---
PATIENT NAME:JANICE JIMENEZ JR MEDICAL RECORD: [id number] : 47 LOCATION:D. D.2128 ADMIT DATE: 07/13/18 ACCOUNT: [id number] CONSULTING PHYSICIAN: RAFAEL BRANDT MD REFERRING PHYSICIAN: OMI MONGE DO DATE OF CONSULTATION: 07/15/2018 HISTORY OF PRESENT ILLNESS: A 73-year-old gentleman with a known history of coronary artery disease, status post intervention, most recent stent in LAD, began feeling poorly with upper respiratory tract infection last Yovany after developing cough, fever, chills, dyspnea, wheezing. Was initially seen in the ER, was treated as URI, symptoms worsened, presented to the ER. Noted to have elevated troponin as well. We are asked to see him concerning cardiovascular status. PAST MEDICAL HISTORY: Includes; 1. History of coronary artery disease. 2. Hypertension. 3. Hyperlipidemia. ALLERGIES: BENADRYL. MEDICATIONS: Typically include Flomax 0.4 at bedtime, Brovana 15 mcg b.i.d., Atrovent 0.5 mcg every day, metoprolol 100 b.i.d., losartan 100 every day, lovastatin 20 bedtime, niacin 500 mg at bedtime, nifedipine 90 every day, Celexa 20 every day, Lasix 40 every day, potassium supplementation 10 mEq every day. SOCIAL HISTORY: Nonsmoker, nondrinker, typically he takes care of all ADLs. REVIEW OF SYSTEMS: The patient reports easy bruising but reports no swollen glands. The patient reports no fever, no night sweats, no significant weight gain, no significant weight loss. No significant exercise tolerance. The patient reports no dry eyes, no irritation, no vision change. Patient reports no difficulty hearing and no ear pain. Patient reports no frequent nose bleeds or nose and sinus problems. Patient reports on arm pain on exertion. No shortness of breath while lying down. No history of heart murmur. Patient reports no cough, no wheezing or coughing up blood. Patient reports no abdominal pain, no vomiting. Normal appetite. No diarrhea and not vomiting blood. No nausea and no constipation. Patient reports no incontinence. No difficulty urinating. No hematuria. No increased frequency. Patient reports no muscle aches. No weakness, no arthralgias, no back pain. No swelling of the extremities. Patient reports no abnormal mole, no jaundice, no rashes. Reports no loss of consciousness. No weakness and no numbness. No seizures, dizziness, or headaches. The patient reports no depression, no sleep disturbance, feeling safe in a relationship and no alcohol abuse. Patient reports on fatigue. Reports no runny nose or sinus pressure. No itching, no hives, and no frequent sneezing. PHYSICAL EXAMINATION: GENERAL: A well-developed, well-appearing gentleman in no acute distress. VITAL SIGNS: Heart rate 74, blood pressure 175/99. HEENT: Normocephalic, atraumatic. HEART: Heart tones are distant, a II/ systolic ejection murmur. LUNGS: Expiratory wheezes throughout both lung aranda. ABDOMEN: Soft, nontender. CONSULT REPORT [id number] JANICE JIMENEZ JR EXTREMITIES: Pulses are well preserved, 2+ with no edema. NEUROLOGIC: Intact. DIAGNOSTIC DATA: ECG shows nonspecific ST-T changes inferolaterally. IMPRESSION: Could be strain from underlying upper respiratory tract infection; however, given elevation in troponin to this extent, I feel restenosis should be excluded. PLAN: For diagnostic angiography, intervention based on the above. TRANSINT:[id number] Voice Confirmation ID: [id number] DOCUMENT ID: [id number] RAFAEL BRANDT MD at 1254 CC: [id number] DICTATION DATE: 07/15/18827 EXPORT SALES ASSISTANT: 07/15/18 0942 DIS IN 07/16/18 [place] [address] [place] [address]
--- NOTE | 2018-07-24 12:54 | OP ---
PATIENT NAME: JANICE JIMENEZ JR MEDICAL RECORD: [id number] :47 LOCATION:D.M2 D.2128 ADMISSION DATE:07/13/18 SURGEON: RAFAEL BRANDT MD DATE OF OPERATION: 07/15/2018 PROCEDURE: Left heart catheterization, selective coronary angiography, right femoral artery approach. CATHETERS: A 5-Mosotho sheath, 5/4 left and right Max, 5/4 pig. The procedure was well tolerated. The patient was returned to grace. Sheath was removed. ExoSeal device placed. FINDINGS: Left ventriculography shows global hypokinesis, basically inferior akinesis. Overall, function reduced to 30%. CORONARY ANATOMY: LEFT MAIN: Left main is free of disease. LAD: LAD is free of disease with the diagonals previously stented and this is totally occluded. CIRCUMFLEX: No in-stent restenosis. RIGHT CORONARY ARTERY: Appears to be rudimentary versus maybe codominant at this point in time. DESCRIPTION: A 5-Mosotho sheath was changed for a 6-Mosotho sheath. JL4 guiding catheter provided fair guide catheter support. We attempted to pass through the stent down the diagonal itself; however, given the location right at the takeoff of the LAD, we were unable to get support. There is no evidence of filling distally; however, LAD itself was without disease. We will plan for medical management of his myopathy and coronary artery disease. TRANSINT:[id number] Voice Confirmation ID: [id number] DOCUMENT ID: [id number] RAFAEL BRANDT MD at 1254 CC: [id number] DICTATION DATE: 07/15/18 1606 ASSEMBLER SHOW MOTOR: 07/15/182152 DIS IN 07/16/18 [place] [place] [address]
== END 2018-07-16 15:40 | disposition home or self-care (01) | DRG 177 ==
LOC: D.ER 14:57 → D.M2 18:53 → D.EDHOLD 18:53 → D.M2 19:42
PROVIDERS: Family Medicine; Internal Medicine Interventional Cardiology; ADMIT Family Medicine
PROC: B2151ZZ Fluoroscopy of Left Heart using Low Osmolar Contrast (ICD-10-PCS; 2018-07-15)
PROC: 4A023N7 Measurement of Cardiac Sampling and Pressure, Left Heart, Percutaneous Approach (ICD-10-PCS; 2018-07-15)
PROC: B2111ZZ Fluoroscopy of Multiple Coronary Arteries using Low Osmolar Contrast (ICD-10-PCS; principal; 2018-07-15 14:51)
DX: J15.6 Pneumonia due to other Gram-negative bacteria (principal); J96.21 Acute and chronic respiratory failure with hypoxia; J44.1 Chronic obstructive pulmonary disease with (acute) exacerbation; J44.0 Chronic obstructive pulmonary disease with (acute) lower respiratory infection; I50.20 Unspecified systolic (congestive) heart failure; G47.33 Obstructive sleep apnea (adult) (pediatric); Z87.891 Personal history of nicotine dependence; I25.10 Atherosclerotic heart disease of native coronary artery without angina pectoris; E78.5 Hyperlipidemia, unspecified; K21.9 Gastro-esophageal reflux disease without esophagitis; M81.0 Age-related osteoporosis without current pathological fracture; E66.9 Obesity, unspecified; Z68.22 Body mass index [BMI] 22.0-22.9, adult; I11.0 Hypertensive heart disease with heart failure

== ENCOUNTER → 2018-08-17 18:07 | Outpatient (CLI) | payer MEDICARE, BC ==
[2018-07-14 13:12] VITALS: BMI 38.4
[~2018-08-17 18:07] MED LIST changes: +ALDACTONE25 MG PO; +ASPIRIN325 MG PO; +DOXYCYCLINE HY100 M2 PO; +MUCINEX600 MG PO; +NIFEDIPINE ER90 MG PO; +OCUFLOX 0.3 % OP5 ML RIGHT EYE; +OPTIVE SENSITI1 EACH LEFT EYE; +OPTIVE SENSITI1 EACH RIGHT EYE; +PREDNISONE10 MG PO
[2018-08-17 19:02] LABS: CALC OSMOLALITY 279 mosm/kg (275-300); CALCIUM 8.6 mg/dL (8.5-10.1); CARBON DIOXIDE 20.6 mmol/L (21.0-32.0); CHLORIDE - SERUM 103 mmol/L (98-107); CREATININE - SERUM 0.8 mg/dL (0.6-1.3); SODIUM 140 mmol/L (136-145); UREA NITROGEN 18 mg/dL (7-18); eGFR NON AFRICAN AMERICAN > 90 mL/min (90-120)
[2018-08-17 19:06] LABS: GLUCOSE 73 mg/dL (74-106)
== END | disposition home or self-care (01) ==
LOC: D.LABREF 18:07
PROVIDERS: ATTEND Internal Medicine Interventional Cardiology
DX: I10 Essential (primary) hypertension (principal)

== ENCOUNTER → 2019-01-19 17:14 | Outpatient (CLI) | payer MEDICARE, BC ==
[2018-07-14 13:12] VITALS: BMI 38.4
[2019-01-19 17:32] LABS: ANION GAP 13.6 mmol/L (8-16); CARBON DIOXIDE 33.8 mmol/L (21.0-32.0); CREATININE - SERUM 1.5 mg/dL (0.6-1.3)
[2019-01-19 17:46] LABS: POTASSIUM - SERUM 2.4 mmol/L (3.5-5.1)
== END | disposition home or self-care (01) ==
LOC: D.LABREF 17:14
PROVIDERS: ATTEND Internal Medicine Interventional Cardiology
DX: I10 Essential (primary) hypertension (principal); R60.9 Edema, unspecified; I25.10 Atherosclerotic heart disease of native coronary artery without angina pectoris; E87.70 Fluid overload, unspecified

== ENCOUNTER → 2019-01-27 17:01 | Outpatient (CLI) | payer MEDICARE, BC ==
[2018-07-14 13:12] VITALS: BMI 38.4
[2019-01-27 18:10] LABS: ANION GAP 13.1 mmol/L (8-16); CALCIUM 9.2 mg/dL (8.5-10.1); CREATININE - SERUM 1.3 mg/dL (0.6-1.3); POTASSIUM - SERUM 3.1 mmol/L (3.5-5.1)
== END | disposition home or self-care (01) ==
LOC: D.LABREF 17:01
PROVIDERS: ATTEND Internal Medicine Interventional Cardiology
DX: I10 Essential (primary) hypertension (principal); I25.10 Atherosclerotic heart disease of native coronary artery without angina pectoris

== ENCOUNTER → 2019-02-02 17:11 | Outpatient (CLI) | payer MEDICARE, BC ==
[2018-07-14 13:12] VITALS: BMI 38.4
[2019-02-02 18:06] LABS: ANION GAP 14.2 mmol/L (8-16); CALCIUM 9.5 mg/dL (8.5-10.1); CREATININE - SERUM 1.4 mg/dL (0.6-1.3); POTASSIUM - SERUM 4.2 mmol/L (3.5-5.1)
== END | disposition home or self-care (01) ==
LOC: D.LABREF 17:11
PROVIDERS: ATTEND Nurse Practitioner
DX: R60.0 Localized edema (principal)

== ENCOUNTER → 2019-02-16 08:28 | Outpatient (CLI) | payer MEDICARE, BC ==
[2018-07-14 13:12] VITALS: BMI 38.4
== END | disposition home or self-care (01) ==
LOC: D.RT 08:28
PROVIDERS: ATTEND Internal Medicine Pulmonary Disease
DX: J44.9 Chronic obstructive pulmonary disease, unspecified (principal)

== ENCOUNTER → 2019-04-11 10:10 | Outpatient (CLI) | payer MEDICARE, BC ==
[2018-07-14 13:12] VITALS: BMI 38.4
--- NOTE | 2019-04-19 11:40 | EC ---
PATIENT:JANICE JIMENEZ JR DATE OF SERVICE: 04/11/19 SEX: M MEDICAL RECORD: [id number] DATE OF : [birth year] LOCATION:D.LAB AGE OF PATIENT: 74 ADMISSION DATE: 04/11/19 REFERRING PHYSICIAN: INTERPRETING PHYSICIAN: ANGIE ALVARADO MD ECHOCARDIOGRAM REPORT ECHO CHARGES 4 ECHO COMPLETE Date: 04/11/19 CLINICAL DIAGNOSIS: RESPIRTORY FAILURE, CHRONIC HYPOXEMIC ECHOCARDIOGRAPHIC MEASUREMENTS (adult normal given) AC root (d.<3.7cm) 3.0 cm LV Septum d (<1.2 cm> 1.0 cm Valve Excursion 1.8 cm LV Septum (systole) 1.4 cm Left Atria (s.<4.0cm> 4.3 cm LVPW d(<1.2cm) 1.2 cm RV (d.<2.3cm) 3.6 cm LVPW (sytole) 1.5 cm LV diastole(<5.6CM) 6.0 cm MV E-F(>70mm/sec) cm LV systole 4.4 cm LVOT Diameter 2.4 cm MV exc.(>10mm) cm Est.ejection fraction (50-75%) % DOPPLER: LVIT cm/sec A 93 cm/sec E 46 cm/sec LA cm/sec RVSP 14.1 mmHg LVOT 83 cm/sec AOP1/2T m/s Asc. Ao 178 cm/sec RVOT 71 cm/sec RA cm/sec PA 76 cm/sec AV Gradient Peak 12.7 mmHg AV Mean 6.4 mmHg AV Area 1.7 cm MV Gradient Peak 7.8 mmHg MV Mean 2.7 mmHg MV Area cm COMMENTS: Wood Flooring Specialist: Anupama COX Set Up Person: 1 Dr. Alvarado TAPE# PACS Pericardial Effusion N DATE OF SERVICE: 04/11/2019 FINDINGS: 1. Left ventricular chamber size is mildly dilated. Left ventricular systolic function is preserved at 60%. 2. Left atrium is enlarged at 4.3 cm. Right atrium and right ventricular chamber sizes are as well mildly dilated. 3. Valvular structures have normal structure and motion. 4. Doppler interrogation reveals no significant valvular insufficiency or stenosis and pulmonary systolic pressure is estimated at 14 mmHg. ECHOCARDIOGRAM REPORT [id number] JANICE JIMENEZ JR 5. Bubble study was performed. No evidence of qmpy-qt-vbnsr shunt or nqnuu-qy-msgs shunt, no evidence of AST or VST. TRANSINT:[id number] Voice Confirmation ID: [id number] DOCUMENT ID: [id number] ANGIE ALVARADO MD at 1140 CC: [id number] DICTATION DATE: 04/12/19 1214 SUPERINTENDENT BUILDING: 04/12/19 1223 DEP CLI 04/11/19 [place] [id number] [place] [id number]
== END | disposition home or self-care (01) ==
LOC: D.LAB 08:45 → D.ECHO 09:00 → D.LAB 10:10
PROVIDERS: ATTEND Internal Medicine Pulmonary Disease
DX: J96.11 Chronic respiratory failure with hypoxia (principal)

== ENCOUNTER → 2019-04-12 08:25 | Outpatient (CLI) | payer MEDICARE, BC ==
[2018-07-14 13:12] VITALS: BMI 38.4
== END | disposition home or self-care (01) ==
LOC: D.CT 08:25
PROVIDERS: ATTEND Internal Medicine Pulmonary Disease
DX: R79.1 Abnormal coagulation profile (principal)